=== PATIENT | male | born 1985 | race Caucasian/White ===

== ENCOUNTER 2022-12-04 10:55 | Inpatient (IN) | payer OTHER, SELFPAY ==
--- NOTE | ~2022-12-04 | MR_ITS ---
EXAMINATION: MR CERVICAL SPINE WITHOUT AND WITH CONTRAST MR THORACIC SPINE WITHOUT AND WITH CONTRAST CLINICAL INFORMATION: Demyelinating disease. Saddle anesthesia. Weakness. COMPARISON: None available. TECHNIQUE: MRI of the cervical and thoracic spine was obtained using routine sequences without and following the administration of 8 mL of Gadavist intravenous contrast. FINDINGS: Cervical Spine: Mild degenerative retrolisthesis of C5 on C6. Otherwise, normal anatomic alignment. Moderate degenerative disc disease from C2-C7. Associated mild mixed Modic type discogenic endplate changes including minimal Modic type I discogenic edema at C4-C5 and C5-C6. No additional suspicious marrow edema. The vertebral body heights are well-maintained. No demonstrated spinal cord signal abnormalities. No abnormal contrast enhancement. Limited evaluation of the soft tissues of the neck without demonstrated abnormalities. The flow voids of the major cervical vessels are maintained. Normal appearance of the cervicomedullary junction and visualized posterior fossa. SPINAL LEVELS: C2-C3: Minimal disc-osteophyte complex. There is mild left and no right uncovertebral joint arthropathy. There is mild bilateral facet joint arthropathy. There is no neural foraminal stenosis. There is no spinal canal stenosis. C3-C4: Minimal disc-osteophyte complex. There is mild left and no right uncovertebral joint arthropathy. There is mild bilateral facet joint arthropathy. There is mild left and no right neural foraminal stenosis. There is no spinal canal stenosis. C4-C5: Mild disc-osteophyte complex. There is mild left and no right uncovertebral joint arthropathy. There is moderate bilateral facet joint arthropathy. There is mild left and no right neural foraminal stenosis. There is no spinal canal stenosis. C5-C6: Mild disc-osteophyte complex. There is mild bilateral uncovertebral joint arthropathy. There is mild bilateral facet joint arthropathy. There is mild left and no right neural foraminal stenosis. There is no spinal canal stenosis. C6-C7: Moderate disc-osteophyte complex. There is moderate bilateral uncovertebral joint arthropathy. There is moderate bilateral facet joint arthropathy. There is moderate bilateral neural foraminal stenosis. There is no spinal canal stenosis. C7-T1: Normal annular contour. There is no uncovertebral joint arthropathy. There is mild bilateral facet joint arthropathy. There is no neural foraminal stenosis. There is no spinal canal stenosis. Thoracic Spine: Normal anatomic alignment. Multilevel mild degenerative disc disease with associated mild mixed Modic type discogenic endplate changes. No additional suspicious marrow edema. The vertebral body heights are largely maintained. There appears to be faintly increased T2 signal within the dorsal aspect of the spinal cord from the level of T11 through the conus medullaris. No demonstrated additional spinal cord signal abnormalities. No abnormal contrast enhancement. No significant abnormalities of the paraspinal musculature. Moderate bibasilar dependent atelectasis. Otherwise, limited evaluation of the intrathoracic structures without significant abnormalities. The descending thoracic aorta is of normal contour and caliber. AXIAL SPINAL LEVELS: Minimal multilevel posterior disc herniations, most notably at T3-T4 and T11-T12. There is mild multilevel facet joint arthropathy. There is no neural foraminal stenosis. There is no spinal canal stenosis. MR/MR thoracic spine wo/w con IMPRESSION: 1. There appears to be faintly increased T2 signal within the dorsal aspect of the spinal cord from the level of T11 through the conus medullaris. This is a nonspecific finding but may be seen in the setting of a infectious, inflammatory, or demyelinating process. No demonstrated additional spinal cord signal abnormalities. No abnormal enhancement. 2. Moderate multilevel degenerative spondyloarthropathy of the cervical spine as described in detail above. Most notably, there are moderate neural foraminal stenoses at C6-C7. No overt spinal canal stenosis. 3. Mild multilevel degenerative spondyloarthropathy of the thoracic spine as described in detail above. No overt thoracic spinal canal stenosis or nerve root compression.
--- NOTE | ~2022-12-04 | MR_ITS ---
EXAMINATION: MR LUMBAR SPINE WITHOUT AND WITH CONTRAST CLINICAL INFORMATION: Low back pain and incontinence. Paresthesias. Lower extremity weakness. COMPARISON: No relevant prior imaging. TECHNIQUE: Multiplanar MR imaging of the lumbar spine was performed without and with contrast. A total of 8 mL Gadavist was utilized for this examination. FINDINGS: Alignment is normal. Vertebral body heights are preserved. No acute bone marrow signal changes. There is disc desiccation at L4-L5 and L5-S1 without substantial loss of intervertebral disc height. The tip of the conus medullaris is located at L1-L2. There is intramedullary T2 signal hyperintensity primarily involving the dorsal columns of the distal cord that is partially included within the [id number] of this examination. For instance this finding is well depicted on sagittal image 8 of 14 series 2 and on axial image 1 of 33 series 6. The superior extent of this abnormal finding cannot be determined. Otherwise no mass effect on the conus medullaris. At L1-L2 the annular contour is normal. No canal or neuroforaminal compromise. At L2-L3 the annular contour is normal. No canal or neuroforaminal compromise. At L3-L4 the annular contour is normal. No canal or neuroforaminal compromise. At L4-L5 there is a diffusely bulging disc. Bilateral facet degenerative change. No canal stenosis. No substantial mass effect on the traversing or foraminal nerve roots. At L5-S1 there is a diffusely bulging disc. Bilateral facet degenerative change. No canal stenosis. No substantial mass effect on the traversing or foraminal nerve roots. Postcontrast images also demonstrate abnormal enhancement along the posterior surface of the distal cord. Limited visualization of the retroperitoneal anatomy reveals no abnormal finding. Psoas and paraspinal groups are symmetric. MR/MR lumbar spine wo/w con IMPRESSION: There is abnormal intramedullary signal intensity primarily involving the dorsal columns and subtle superficial enhancement along the dorsal surface of the distal cord. The etiology of these findings is uncertain. Infectious, inflammatory, or demyelinating conditions should be considered. Ischemia can also be considered but is felt to be less likely with this distribution of disease. A dedicated MRI of the brain, cervical spine, and thoracic spine without and with contrast can be obtained for further evaluation of the neural axis. A lumbar puncture can also be undertaken for further workup. There is disc degeneration and degenerative arthrosis of the articular facet joints at L4-L5 and L5-S1. No canal stenosis. No mass effect on the traversing or foraminal nerve roots. This critical result was discussed with Dr Wei at 1:41 PM on 12/04/2022 and it was ascertained that the content and urgency of the report was understood at the time of direct communication.
--- NOTE | ~2022-12-04 | FL_ITS ---
EXAMINATION: XR LUMBAR PUNCTURE CLINICAL INFORMATION: Abnormal MRI question of a demyelinating disease. Weakness and saddle anesthesia of the pelvis. COMPARISON: MRI dated 12/04/2022 TECHNIQUE: After the skin was prepped and draped in usual fashion 1% lidocaine was utilized. A 22-gauge Chiba needle was then placed from a posterior approach into the thecal sac at the level of the L3-L4 disc space. FINDINGS: Clear CSF was drained. Opening pressures were measured at 19 cm. Approximately 8 mL of clear CSF was then collected in 4 separate vials. After collecting the specimens the needle was removed. The patient tolerated the procedure well. FLUOROSCOPY TIME: 2 minutes FL/FL guided lumbar puncture LP IMPRESSION: Fluoroscopic guided lumbar puncture.
--- NOTE | ~2022-12-04 | MR_ITS ---
EXAMINATION: MR BRAIN WITHOUT AND WITH CONTRAST CLINICAL INFORMATION: Demyelinating disease. Saddle anesthesia. Weakness. COMPARISON: None available. TECHNIQUE: MRI of the brain was obtained using routine sequences without and following the administration of 8 mL of Gadavist intravenous contrast. FINDINGS: No focal restricted diffusion is demonstrated to suggest acute or subacute cerebral ischemia. No evidence of acute or chronic hemorrhagic products on heme-sensitive imaging. Normal parenchymal signal characteristics. The ventricles are normal in morphology and size. No abnormal mass effect. No midline shift. Normal appearance of the pituitary gland. Normal positioning of the cerebellar tonsils. Normal arterial and venous vascular flow voids are present. No abnormal contrast enhancement. Normal, homogeneous marrow signal. Moderate mucosal thickening of the paranasal sinuses. No signal abnormalities within the mastoids. MR/MR head/brain wo/w con IMPRESSION: 1. No acute intracranial abnormalities. No abnormal intracranial enhancement. 2. No MRI abnormalities to explain the patient's symptoms.
[2022-12-04 11:10] VITALS: BP 139/70; PULSE 110; RESP 18; O2SAT 97; BMI 25.1
--- NOTE | 2022-12-04 11:14 | ED_ITS ---
HPI - Neuro Symptoms/Deficit General Chief Complaint: Neuro Symptoms/Deficit Stated Complaint: mri Time Seen by Provider: 12/04/22 11:02 Source: patient Mode of arrival: ambulatory Limitations: no limitations History of Present Illness HPI Narrative: 37-year-old male otherwise healthy came in from Dr. Ramos's office for further evaluation of lower extremities weakness and urinary incontinence with suspicion for cauda equina syndrome. 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 Been having a progressive weakness to lower extremities bilaterally, patient also noted that his been having urinary incontinence, with loss sensation on the buttock area bilaterally, patient also is unable to ambulate on his heels due to weakness of the dorsiflexion. Never had similar symptoms in the past, never had surgical history. No history of IV drug abuse, no fever, no chills. Related Data Home Medications Medication Instructions Recorded Confirmed citalopram 10 mg tablet 10 mg PO DAILY 12/04/22 12/04/22 dextroamphetamine-amphetamine 10 1 tab PO 3XD PRN sleep disorder 12/04/22 12/04/22 mg tablet dextroamphetamine-amphetamine 20 1 tab PO QAM 12/04/22 12/04/22 mg tablet doxycycline hyclate 100 mg capsule 100 mg PO BID 12/04/22 12/04/22 Allergies Allergy/AdvReac Type Severity Reaction Status Date / Time No Known Allergies Allergy Verified 12/04/22 11:09 Review of Systems Review of Systems: All other systems are reviewed and are negative Constitutional: Reports as per HPI and Reports no additional constitutional complaints Eyes: Reports as per HPI and Reports no additional eye complaints Reports system reviewed and no additional complaints, except as documented Cardiovascular: Reports as per HPI and Reports no additional cardiovascular complaints Respiratory: Reports as per HPI and Reports no additional respiratory complaints Gastrointestinal: Reports as per HPI and Reports no additional gastrointestinal complaints Genitourinary: Reports no additional female genitourinary complaints Musculoskeletal: Reports no additional musculoskeletal complaints Skin/Breast: Reports system reviewed and no additional complaints, except as docu Psychiatric: Reports no additional psychiatric complaints Endocrine: Reports no additional endocrine complaints Hematologic/Lymphatic: Reports no additional hematologic/lymphatic complaints Allergic/Immunologic: Reports no additional allergic/immunologic complaints Reports system reviewed and no additional complaints, except as documented and Reports Abnormal speech present [facility] Social History Social History Advance Directives: No Physical Exam Vital Signs: Vital Signs: Last Vital Signs Pulse 110 H 12/04/22 11:10 Resp 18 12/04/22 11:10 BP 139/70 12/04/22 11:10 Pulse Ox 97 12/04/22 11:10 O2 Del Method Room Air 12/04/22 11:10 BMI result Body Mass Index 25.1 Vital signs have been reviewed as appeared to be correct. Blood pressure normal. Heart rate normal. Respiration rate normal. Temperature normal. Oxygen saturation normal. Appearance: Alert. Oriented X3. No acute distress. Head: Normal external exam. Normocephalic. Atraumatic. No Miguel signs noted. No raccoon eyes noted Eyes: PERRLA. EOMI. Conjunctiva and sclera normal. Eyelids normal. ENT: TM's Normal. Pharynx normal. Uvula midline. Moist mucous membranes. No trismus noted. No drooling noted. No muffled voice noted. Neck: Normal inspection. Neck supple. FROM. No adenopathy. Thyroid Normal. No meningeal signs. No neck mass noted. CVS: Normal heart rate and rhythm. Heart sound normal. No murmurs noted. Pulses normal throughout. Respiratory: No respiratory distress. Painless inspiration. Breath sounds normal. No wheezes/rales/rhonchi noted. Chest nontender. No accessory muscle usage noted or decreased air movement noted. Abdomen: Soft and nontender. Bowel sounds normal in all 4 quadrants. No distention noted. No organomegaly noted. No visible injury noted. Back: No CVA tenderness. Full range of motion noted. Skin: Skin warm and dry. Normal skin color. Normal skin turgor. No rashes/lesions/lacerations noted. Extremities: No lower extremity edema. Extremities exhibit normal range of motion. Extremities nontender. Neuro: Decreased sensation to the bilateral buttock area to light touch and pin per, no perianal sensation, weakness of the dorsiflexion. Course Course Course Narrative: Abnormal spinal cord signal involving the dorsal Columns, the case discussed with Dr. Loyd will start the patient on high dose Solu-Medrol, non emergent LP, admission for further neurological investigations. Medications Administered Discontinued Medications Generic Name Dose Route Start Last Admin Trade Name Freq PRN Reason Stop Dose Admin Gadobutrol 10 ml 12/04/22 12:09 12/04/22 12:09 Gadobutrol 10 Ml Vial IVPUSH 12/04/22 12:10 8 ml ONCE ONE Administration Medical Decision Making Differential Diagnosis Differential Diagnoses: The differential diagnosis associated with the presentation includes (Cauda equina, space-occupying lesion, electrolyte abnormality, severe anemia.) Admission/Observation Consideration of admission/observation: Escalation of care including admission/observation considered Consult Healthcare Provider Management of the patient was discussed with: Hospitalist (Dr. Coffman) and Credit Associate (Dr. Loyd) Lab Data MDM Lab Attestation statement: I reviewed the patient's lab results. 12/04/22 12:55 12/04/22 12:55 Labs: Lab Results 12/04/22 12/04/22 Range/Units 12:55 12:55 WBC 7.4 (4.8-10.8) X10*3/uL RBC 4.18 L (4.60-5.80) X10*6/uL Hgb 14.0 (14.0-18.0) g/dl Hct 40.0 L (42.0-52.0) % MCV 95.7 (80.0-98.0) fL MCH 33.5 H (27.0-33.0) pg MCHC 35.0 (31.0-36.0) g/dl RDW 11.5 (11.0-16.0) % Plt Count 224 (160-400) X10*3/uL MPV 8.9 L (9.4-12.4) fL Immature Gran % (Auto) 1.2 H (0.0-0.4) % Neut % (Auto) 66.2 (45-73) % Lymph % (Auto) 23.7 (20-40) % Mcminn % (Auto) 6.6 (2-11) % Eos % (Auto) 1.6 (0-4) % Baso % (Auto) 0.7 (0-2) % Lymph # (Auto) 1.8 (1.2-4.9) X10*3/uL Mcminn # (Auto) 0.5 (0.1-1.2) X10*3/uL Eos # (Auto) 0.1 (0.0-0.4) X10*3/uL Baso # (Auto) 0.1 (0.0-0.2) X10*3/uL Abs Immat Gran (auto) 0.09 H (0.00-0.03) X10*3/uL Absolute Neuts (auto) 4.9 (2.0-8.3) x10*3/uL Absolute Nucleated RBC 0.000 (0.0-0.012) X10*3/uL Nucleated RBC % (auto) 0.0 (0.0-0.2) /100WBC Sodium 141 (135-145) mmol/L Potassium 4.3 (3.3-5.1) mmol/L Chloride 105 (96-108) mmol/L Carbon Dioxide 25 (22-29) mmol/L Anion Gap 15 (12-20) BUN 12 (9-16) mg/dL Creatinine 0.80 (0.5-1.4) mg/dL Estim Creat Clear Calc 131.8 Estimated GFR > 60 Random Glucose 89 (60-115) mg/dL Calcium 9.5 (8.4-10.2) mg/dL Independent Interpretation Interpretation: Lumbar spine MRI:There is abnormal intramedullary signal intensity primarily involving the dorsal columns and subtle superficial enhancement along the dorsal surface of the distal cord. The etiology of these findings is uncertain. Infectious, inflammatory, or demyelinating conditions should be considered. Ischemia can also be considered but is felt to be less likely with this distribution of disease Radiology Impression Discussion of test interpretation with radiology: I have reviewed the r adiologist's reading. Discharge Plan Discharge Clinical Impression: Lower extremity weakness, Demyelinating disease of the spinal cord Patient Disposition: Admitted As Inpatient
--- NOTE | 2022-12-04 11:17 | PC.NURSE ---
mri screening form done and pt sent to MRI
--- OUTSIDE RECORDS SUMMARY | 2022-12-04 11:18 | XMS_ITS | Continuity of Care Document ---
Author Name Unknown Organization [facility] kiran Address [address] [place] [address] [address] [place] [address]- Care Team Providers Care Christmas Tree Grower Name Role Phone Shanae Lam MD Primary Care Physician Encounter [facility] Date(s): 08/13/21 - 10/05/21 [facility] [address] [place] [address]- Attending Physician: Kaz Singletary MD Referring Physician: Shanae Lam MD Allergies, Adverse Reactions, Alerts No Known Allergies Immunizations Given and Recorded Vaccine Date Status Refusal Reason influenza virus vaccine, inactivated 1 02/21/16 Gi driss Influenza Inactive (IM) (oldterm) 2 03/29/14 Given Influenza Inactive (IM) (oldterm) 3 03/05/09 Given Human Papillomavirus Vaccine 09/22/12 Given Human Papillomavirus Vaccine 4 03/03/12 Given Human Papillomavirus Vaccine 5 01/20/12 Given tetanus/diphtheria/pertussis, acel(Tdap) 6 09/13/09 Given 1Admin Note: Work , [employer] employee 2Admin Note: specific date unknown 3Admin Note: specific date unknown seasonal given 4Admin Note: vis given 5Admin Note: vis given 6Admin Note: specific date unknown Medications Adderall 10 mg oral tablet 1 tablet = 10 mg, By Mouth, 2 times a day, controlled substance agreement. Next citrus picker in office 04/12/16 DX: F90.9, # 56 tablet, 0 Refills, Maintenance, 04/12/16 16:39:03 Start Date: 04/12/16 Stop Date: 05/10/16 Status: Ordered citalopram 40 mg oral tablet 40 mg, 1, tablet, By Mouth, Daily, # 90 tablet, Refills 1, Tot. Refills 1, Maintenance, 10/01/16 11:10:14, Route to Pharmacy Electronically, [id number], [facility]/pharmacy #[id number] Start Date: 10/01/16 Stop Date: 03/30/17 Status: Ordered Multivitamin Daily, 0 Refills, Maintenance, 02/21/16 15:24:00 Start Date: 02/21/16 Status: Ordered Paxlovid 150 mg-100 mg oral tablet See Instructions, 300 mg nirmatrelvir (two 150mg tablets) with 100mg ritonavir (one tablet). All 3 tablets taken together twice daily for 5 days with or without food. Dispense 30 tablets Patient's GFR checked in the emergency department on ... Start Date: 08/29/21 Status: Ordered Problem List Condition Effective Dates Status Health Status Inform ant Abdominal bloating(Confirmed) Active Abdominal pain, generalized(Confirmed) Active Anxiety(Confirmed) 12/19/12 Active Change in bowel habit(Confirmed) Active COVID-19(Confirmed) 1 08/29/21 Active Depression(Confirmed) Active Diagnostic colonoscopy(Confirmed) Active Epigastric pain(Confirmed) Active Heartburn symptom(Confirmed) Active Hiatal hernia(Confirmed) Active Hypersomnia, idiopathic. MLS T 05/2013(Confirmed) 12/19/12 Active Irritable bowel syndrome wit h diarrhea(Confirmed) Active Psoriasis with arthropathy(Confirmed) Active Tobacco dependence syndrome(Confirmed) Active Vitamin D deficiency(Confirmed) Active 1Problem added by Discern Expert Social History Social History Type Response Smoking Status Current every day xin guzman; Interested in cessation: Yes; Tobacco use times per day: 1 ppd; entered on: 09/28/14 Sex
--- OUTSIDE RECORDS SUMMARY | 2022-12-04 11:19 | XMS_ITS | Continuity of Care Document ---
Author Name Unknown Organization [facility] Address [address] [place] [address]- Care Team Providers Care Air Brake Man Name Role Phone Not on Staff, PCP Primary Care Physician Unavail able Encounter [facility] NBR [id number] Date(s): 08/24/20 - 08/24/[address] [address]- Discharge Disposition: A-D/C Home Attending Physician: Randy Patel MD Admitting Physician: Randy Patel MD Referring Physician: Not on Staff, Referring MD Allergies, Adverse Reactions, Alerts Substance Reaction Severity Status NKA Active Immunizations Given and Recorded Vaccine Date Status Refusal Reason influenza virus vaccine, inactivated 1 02/21/16 Gi driss Influenza Inactive (IM) (oldterm) 2 03/29/14 Given Influenza Inactive (IM) (oldterm) 3 03/05/09 Given Human Papillomavirus Vaccine 09/22/12 Given Human Papillomavirus Vaccine 4 03/03/12 Given Human Papillomavirus Vaccine 5 01/20/12 Given tetanus/diphtheria/pertussis, acel(Tdap) 6 09/13/09 Given 1Admin Note: Work , [employer] employee 2Admin Note: specific date unknown 3Admin Note: specific date unknown seasonal given 4Admin Note: vis given 5Admin Note: vis given 6Admin Note: specific date unknown Medications Adderall 10 mg oral tablet 1 tablet = 10 mg, By Mouth, 2 times a day, controlled substance agreement. Next pick up and delivery driver in office 04/12/16 DX: F90.9, # 56 tablet, 0 Refills, Maintenance, 04/12/16 16:39:03 Start Date: 04/12/16 Stop Date: 05/10/16 Status: Ordered Augmentin 875 mg-125 mg oral tablet 1 tablet, By Mouth, Every 12 hours, for 10 days, # 20 tablet, 0 Refills, Acute 09/03/20 16:11:00 EDT, 08/24/20 16:11:00 EDT, Tablet, [facility]/pharmacy #[id number], Partial fill upon patient request if the prescription is for a schedule II opioid drug., 180, cm,... Start Date: 08/24/20 Stop Date: 09/03/20 Status: Ordered citalopram 40 mg oral tablet 40 mg, 1, tablet, By Mouth, Daily, # 90 tablet, Refills 1, Tot. Refills 1, Maintenance, 10/01/16 11:10:14, Route to Pharmacy Electronically, [id number], [facility]/pharmacy #[id number] Start Date: 10/01/16 Stop Date: 03/30/17 Status: Ordered Dilaudid Inj 1 mg, Injection, IV Push Slowly, Once, STAT, 08/24/20 11:22:00 EDT, Stop date 08/24/20 11:22:00 EDT Start Date: 08/24/20 Stop Date: 08/24/20 Status: Completed Multivitamin Daily, 0 Refills, Maintenance, 02/21/16 15:24:00 Start Date: 02/21/16 Status: Ordered oxyCODONE 5 mg oral capsule 1 capsule = 5 mg, By Mouth, Every 6 hours, PRN as needed for pain, # 10 capsule, 0 Refills, Acute 08/29/20 16:16:00 EDT, 08/24/20 16:13:00 EDT, Capsule, [facility]/pharmacy #[id number], Partial fill upon patient request if the prescription is for a schedule II opi... Start Date: 08/24/20 Stop Date: 08/29/20 Status: Ordered Problem List Condition Effective Dates Status Health Status Inform ant Abdominal bloating(Confirmed) Active Abdominal pain, generalized(Confirmed) Active Anxiety(Confirmed) 12/19/12 Active Change in bowel habit(Confirmed) Active Depression(Confirmed) Active Diagnostic colonoscopy(Confirmed) Active Epigastric pain(Confirmed) Active Heartburn symptom(Confirmed) Active Hiatal hernia(Confirmed) Active Hypersomnia, idiopathic. MLS T 05/2013(Confirmed) 12/19/12 Active Irritable bowel syndrome wit h diarrhea(Confirmed) Active Psoriasis with arthropathy(Confirmed) Active Tobacco dependence syndrome(Confirmed) Active Vitamin D deficiency(Confirmed) Active Results Orders for Microbiology Reports Name Date Wound Deep Culture w/ Gram Smear (Cultur e Wound Deep w/ Gram Smear) 08/24/20 Microbiology Reports TEST:Deep Wound Culture STATUS:Unauthenticated BODY SITE: SOURCE:ABSCES COLLECTED DATE/TIME:08/24/20 4:00 PM Deep Wound Culture SPECIMEN DESCRIPTION : ABSCESS BUTTOCK LT SPECIAL REQUESTS : NONE GRAM STAIN : 4+ POLYMORPHONUCLEAR LEUKOCYTES 3+ RBC'S 3+ GRAM POSITIVE COCCI 1+ GRAM NEGATIVE RODS REPORT STATUS : PRELIMINARY REPORT Vital Signs Most recent to oldest [Reference Range]: 1 2 3 Height 180 cm (08/24/20 4:11 PM) 180 cm (08/24/20 1:08 PM) 180 cm (08/24/20 10:14 AM) Weight 79.5 kg (08/24/20 4:11 PM) 79.5 kg (08/24/20 10:14 AM) Oxygen Saturation [94-100 %] 86 % *L* (08/24/20 4:11 PM) 97 % (08/24/20 1:08 PM) 96 % (08/24/20 10:14 AM) Pulse Rate [55-90 bpm] 86 bpm (08/24/20 4:11 PM) 88 bpm (08/24/20 1:08 PM) 97 bpm *H* (08/24/20 10:14 AM) Body Mass Index [18.5-24.99] 24.54 (08/24/20 4:11 PM) Blood Pressure [90-138/55-84 mm Hg] 104/62mm Hg (08/24/20 4:11 PM) 115/78mm Hg (08/24/20 1:08 PM) 127/76mm Hg (08/24/20 10:14 AM) Respiratory Rate [16-30 br/min] 18 br/min (08/24/20 4:11 PM) 16 br/min (08/24/20 11:33 AM) 18 br/min (08/24/20 10:14 AM) Temperature [96.8-100.4 DegF] 98.9 DegF (08/24/20 10:14 AM) Mode of Delivery (Oxygen) Room air (08/24/20 4:11 PM) Room air (08/24/20 1:08 PM) Room air (08/24/20 10:14 AM) Blood pressure sites Arm, left (08/24/20 4:11 PM) Arm, left (08/24/20 1:08 PM) Temperature Route Oral (08/24/20 10:14 AM) Dry Weight 79.5 kg (08/24/20 4:11 PM) 79.5 kg (08/24/20 10:14 AM) Social History Social History Type Response Smoking Status Current every day xin guzman; Interested in cessation: Yes; Tobacco use times per day: 1 ppd; entered on: 09/28/14 Sex
--- OUTSIDE RECORDS SUMMARY | 2022-12-04 11:19 | XMS_ITS | Continuity of Care Document ---
Author Name Unknown Organization [facility] Nori kiran Address [address] [place] [address] [address] [place] [address]- Care Team Providers Care Technical Laboratory Asst Name Role Phone Genaro PAULA, Shanae Pinto Primary Care Physician [phone] Encounter [facility] Date(s): 03/06/22 - 04/12/22 [facility] [address] [place] [address]- Attending Physician: Hayder PAULA, Kaz Woods Allergies, Adverse Reactions, Alerts No Known Allergies [...] 6 09/13/09 Given 1Admin Note: Work , [facility] employee 2Admin Note: specific date unknown 3Admin Note: specific date unknown seasonal given 4Admin Note: vis given 5Admin Note: vis given 6Admin Note: specific date unknown Medications Adderall 10 mg oral tablet 1 tablet = 10 mg, By Mouth, 2 times a day, controlled substance agreement. Next orange picker machine operator in office 04/12/16 DX: F90.9, # 56 tablet, 0 Refills, Maintenance, 04/12/16 16:39:03 Start Date: 04/12/16 Stop Date: 05/10/16 Status: Ordered citalopram 40 mg oral tablet 40 mg, 1, tablet, By Mouth, Daily, # 90 tablet, Refills 1, Tot. Refills 1, Maintenance, 05/30/17 11:10:14, Route to Pharmacy Electronically, [id number], [facility]/pharmacy #[id number] Start Date: 10/01/16 Stop Date: 03/30/17 Status: Ordered Multivitamin Daily, 0 Refills, Maintenance, 02/21/16 15:24:00 Start Date: 02/21/16 Status: Ordered Problem List Condition Confirmation Course Effective Dates Status Health St atus Informant Abdominal bloating Confirmed Active Abdominal pain, generalized Confirmed Active Anxiety Confirmed 12/19/12 Active Change in bowel habit Confirmed Active COVID-19 1 Confirmed 08/29/21 Active Depression Confirmed Active Diagnostic colonoscopy Confirmed Active Epigastric pain Confirmed Active Heartburn symptom Confirmed Active Hiatal hernia Confirmed Active Hypersomnia, idiopathic. MLST 05/2013 Confirmed 12/19/12 Active Irritable bowel syndrome with diarrhea Confirmed Active Psoriasis with arthropathy Confirmed Active Tobacco dependence syndrome Confirmed Active Vitamin D deficiency Confirmed Active 1Problem added by Discern Expert Social History Social History Type Response Smoking Status Current every day sm oker; Interested in cessation: Yes; Tobacco use times per day: 1 ppd; entered on: 09/28/14 Sex Patient Care team information Care Team Personnel Name: Elvis Ferguson RN Position: S RN Member Role: Primary Care Nurse Name: Elvis Rosario RN Position: S RN Member Role: Primary Care Nurse Name: Shanae Lam MD Position: [facility] Physician (General Medicine) Member Role: PCP Address: Address: [address] [place] [address]- Care Team Related Persons Name: RODNEY MONTANEZ Address: home [address] [place] [address] Name: GREGORIO MONTANEZ Address: [address] [place] [address] Name: JAN MONTANEZ Address: home [address] [place] [address]
--- OUTSIDE RECORDS SUMMARY | 2022-12-04 11:19 | XMS_ITS | Continuity of Care Document ---
Author Name Unknown Organization [facility] Nori kiran Address [address] [place] [address] [address] [place] [address]- Care Team Providers Care Golf Course Patroller Name Role Phone Genaro PAULA, Shanae Pinto Primary Care Physician Encounter [facility] Date(s): 03/21/22 - 03/28/22 [facility] [address] [place] [address]- Attending Physician: Hayder PAULA, Kaz Woods Allergies, [...] 6 09/13/09 Given 1Admin Note: Work , [facility] employee 2Admin Note: specific date unknown 3Admin Note: specific date unknown seasonal given 4Admin Note: vis given 5Admin Note: vis given 6Admin Note: specific date unknown Medications Adderall 10 mg oral tablet 1 tablet = 10 mg, By Mouth, 2 times a day, controlled substance agreement. Next picket labor union in office 04/12/16 DX: F90.9, # 56 tablet, 0 Refills, Maintenance, 04/12/16 16:39:03 Start Date: 04/12/16 Stop Date: 05/10/16 Status: Ordered citalopram 40 mg oral tablet 40 mg, 1, tablet, By Mouth, Daily, # 90 tablet, Refills 1, Tot. Refills 1, Maintenance, 05/30/17 11:10:14, Route to Pharmacy Electronically, [id number], [facility]/pharmacy #[id number] Start Date: 10/01/16 Stop Date: 03/30/17 [...] Confirmed Active 1Problem added by Discern Expert Vital Signs Most recent to oldest [Reference Range]: 1 Height 180 cm (03/21/22 11:56 AM) Pulse Rate [55-90 bpm] 115 bpm *H* (03/21/22 11:56 AM) Blood Pressure [90-138/55-84 mm Hg] 142/ 99mm Hg *H* (03/21/22 11:56 AM) Blood pressure sites Arm, left (03/21/22 11:56 AM) Social History Social History Type Response [...] Care Nurse Name: Shanae Lam MD Position: [facility] Physician (General Medicine) Member Role: PCP Address: Address: [address] [address]- Care Team Related Persons Name: RODNEY MONTANEZ Address: home [address] [place] [id number] Name: GREGORIO MONTANEZ Address: [address] [place] [address] Name: JAN MONTANEZ Address: home [address] [place] [address]
--- OUTSIDE RECORDS SUMMARY | 2022-12-04 11:19 | XMS_ITS | Continuity of Care Document ---
Author Name Unknown Organization [facility] Address [address] [place] [address]- Care Team Providers Care Sewing Room Supervisor Name Role Phone Genaro PAULA, Shanae Pinto Primary Care Physician [phone] Encounter [facility] Date(s): 08/28/20 - [facility] [address] [place] [address]- Attending Physician: Andre Zapata MD Allergies, Adverse Reactions, Alerts Substance Reaction [...] 6 09/13/09 Given 1Admin Note: Work , [facility] employee 2Admin Note: specific date unknown 3Admin Note: specific date unknown seasonal given 4Admin Note: vis given 5Admin Note: vis given 6Admin Note: specific date unknown Medications Adderall 10 mg oral tablet 1 tablet = 10 mg, By Mouth, 2 times a day, controlled substance agreement. Next tile picker in office 04/12/16 DX: F90.9, # 56 tablet, 0 Refills, Maintenance, 04/12/16 16:39:03 Start Date: 04/12/16 Stop Date: 05/10/16 Status: Ordered citalopram 40 mg oral tablet 40 mg, 1, tablet, By Mouth, Daily, # 90 tablet, Refills 1, Tot. Refills 1, Maintenance, 10/01/16 11:10:14, Route to Pharmacy Electronically, [id number], [facility]/pharmacy #[id number] Start Date: 10/01/16 Stop Date: 03/30/17 Status: Ordered Multivitamin Daily, 0 Refills, Maintenance, 02/21/16 15:24:00 Start Date: 02/21/16 Status: Ordered Problem List Condition Effective Dates [...] dependence syndrome(Confirmed) Active Vitamin D deficiency(Confirmed) Active Social History Social History Type Response Smoking Status Current every day xin guzman; Interested in cessation: Yes; Tobacco use times per day: 1 ppd; entered on: 09/28/14 Sex
--- OUTSIDE RECORDS SUMMARY | 2022-12-04 11:19 | XMS_ITS | Continuity of Care Document ---
Author Name Unknown Organization [facility] kiran Address [address] [place] [address] Dri ve [address] [place] [address]- Care Team Providers Care Production Supply Equipment Tender Name Role Phone Shanae Lam MD Primary Care Physician [phone] Encounter [facility] Date(s): 03/21/22 - 04/20/22 [facility] [address] [place], [place] [address] Attending Physician: Frank Bryant Admitting Physician: Frank Bryant Referring Physician: AdmFrank peterson Allergies, Adverse Reactions, Alerts No Known Allergies [...] 09/13/09 Given 1Admin Note: Work , [facility] employee 2Admin Note: specific date unknown 3Admin [...] Maintenance, 10/01/16 11:10:14, Route to Pharmacy Electronically, [id number], [facility]/pharmacy #[id number] Start Date: 10/01/16 Stop Date: [...] Care Nurse Name: Shanae Lam MD Position: [facility] Physician (General Medicine) Member Role: PCP Address: Address: [address] [place], [place] [address] Care Team Related Persons Name: RODNEY MONTANEZ Address: home [address] [place] [address] Name: GREGORIO MONTANEZ Address: [address] [place] [address] Name: JAN MONTANEZ Address: home [address] [place] [address]
--- OUTSIDE RECORDS SUMMARY | 2022-12-04 11:19 | XMS_ITS | Continuity of Care Document ---
Author Name Unknown Organization [facility] Address [address] [place] [address] Dr [address] [place] [address]- Care Team Providers Care Correction Officer Reformatory Name Role Phone Shanae Lam MD Primary Care Physician Encounter [facility] Date(s): 11/08/21 - 12/08/21 [facility] [address] [place], [place] [address] Attending Physician: Frank Bryant Admitting Physician: Frank Bryant Referring Physician: AdmtrFrank Allergies, Adverse Reactions, Alerts No Known Allergies [...] 6 09/13/09 Given 1Admin Note: Work , [facility] employee 2Admin Note: specific date unknown 3Admin Note: specific date unknown seasonal given 4Admin Note: vis given 5Admin Note: vis given 6Admin Note: specific date unknown Medications Adderall 10 mg oral tablet 1 tablet = 10 mg, By Mouth, 2 times a day, controlled substance agreement. Next berry picker machine operator in office 04/12/16 DX: F90.9, # 56 tablet, 0 Refills, Maintenance, 04/12/16 16:39:03 Start Date: 04/12/16 Stop Date: 05/10/16 Status: Ordered citalopram 40 mg oral tablet 40 mg, 1, tablet, By Mouth, Daily, # 90 tablet, Refills 1, Tot. Refills 1, Maintenance, 10/01/16 11:10:14, Route to Pharmacy Electronically, [id number], [facility]/pharmacy #[id number] Start Date: 10/01/16 Stop Date: [...]
--- OUTSIDE RECORDS SUMMARY | 2022-12-04 11:19 | XMS_ITS | Continuity of Care Document ---
Author Name Unknown Organization [facility] kiran Address [address] [place] [address] ve [address] [place] [address]- Care Team Providers Care Hand Miter Operator Name Role Phone Genaro PAULA, Shanae Pinto Primary Care Physician Encounter [facility] Date(s): 01/16/22 - 02/15/22 [facility] [address] [place] [address]- Attending Physician: Frank Bryant Admitting Physician: Frank [...] 6 09/13/09 Given 1Admin Note: Work , [facility] employee 2Admin Note: specific date unknown 3Admin Note: specific date unknown seasonal given 4Admin Note: vis given 5Admin Note: vis given 6Admin Note: specific date unknown Medications Adderall 10 mg oral tablet 1 tablet = 10 mg, By Mouth, 2 times a day, controlled substance agreement. Next pecan picker in office 04/12/16 DX: F90.9, # 56 tablet, 0 Refills, Maintenance, 04/12/16 16:39:03 Start Date: 04/12/16 Stop Date: 05/10/16 Status: Ordered citalopram 40 mg oral tablet 40 mg, 1, tablet, By Mouth, Daily, # 90 tablet, Refills 1, Tot. Refills 1, Maintenance, 10/01/16 11:10:14, Route to Pharmacy Electronically, [id number], [facility]/pharmacy #[id number] Start Date: 10/01/16 Stop Date: [...] Response Smoking Status Current every day xin oker; Interested in cessation: Yes; Tobacco use times per day: 1 ppd; entered on: 09/28/14 Sex Patient Care team information Personnel Name: Genaro PAULA , Shanae Pinto Address: Address: [address] [place], [place] [address]
--- OUTSIDE RECORDS SUMMARY | 2022-12-04 11:19 | XMS_ITS | Continuity of Care Document ---
Author Name Unknown Organization [facility] Address [address] [place] [address] ve [address] [place] [address]- Care Team Providers Care Highway Painter Name Role Phone Genaro PAULA, Shanae Pinto Primary Care Physician [phone] Encounter [facility] Date(s): 01/16/22 - 01/23/22 [facility] [address] [place] [address]- Attending Physician: Kaz Singletary MD Allergies, Adverse Reactions, Alerts No Known [...] 6 09/13/09 Given 1Admin Note: Work , [facility] employee 2Admin Note: specific date unknown 3Admin Note: specific date unknown seasonal given 4Admin Note: vis given 5Admin Note: vis given 6Admin Note: specific date unknown Medications Adderall 10 mg oral tablet 1 tablet = 10 mg, By Mouth, 2 times a day, controlled substance agreement. 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 Refills 1, Maintenance, 10/01/16 11:10:14, Route to Pharmacy Electronically, [id number], [facility]/pharmacy #[id number] Start Date: 10/01/16 Stop Date: [...] deficiency(Confirmed) Active 1Problem added by Discern Expert Vital Signs Most recent to oldest [Reference Range]: 1 Height 180 cm (01/16/22 10:02 AM) Weight 80 kg (01/16/22 10:02 AM) Body Mass Index [18.5-24.99] 24.69 (01/16/22 10:02 AM) Social History Social History Type Response Smoking Status Current every day xin oker; Interested in cessation: Yes; Tobacco use times per day: 1 ppd; entered on: 09/28/14 Sex Care Team Personnel Name: Shanae Lam MD Address: [address] [place] [address] [address]
--- OUTSIDE RECORDS SUMMARY | 2022-12-04 11:19 | XMS_ITS | Continuity of Care Document ---
Author Name Unknown Organization [facility] Address [address] [place] [address]- Care Team Providers Care Outside Dealer Sales Representative Name Role Phone Genaro PAULA, Shanae Pinto Primary Care Physician Encounter [facility] Date(s): 08/28/20 - 09/27/20 [facility] [address] [place], [place] [address] Allergies, Adverse Reactions, Alerts Substance Reaction Severity [...] times a day, controlled substance agreement. 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 Refills 1, Maintenance, 10/01/16 11:10:14, Route to Pharmacy Electronically, [id number], [facility]/pharmacy #[id number] Start Date: 10/01/16 Stop Date: 03/30/17 [...]
--- OUTSIDE RECORDS SUMMARY | 2022-12-04 11:19 | XMS_ITS | Continuity of Care Document ---
Author Name Unknown Organization [facility] Nori kiran Address [address] [place] [address] [address] [place] [address]- Care Team Providers Care Applications Support Analyst Name Role Phone Genaro PAULA, Shanae Pinto Primary Care Physician [phone] Encounter [facility] Date(s): 07/18/22 - 07/25/22 [facility] [address] [place] [address] Drive [address] [place] [address]- Attending Physician: Gurmeet MARRERO, Desi Lei Allergies, Adverse Reactions, Alerts No Known Allergies [...] 09/13/09 Given 1Admin Note: Work , [facility] employee 2Admin Note: specific date unknown 3Admin Note: specific date unknown seasonal given 4Admin Note: vis given 5Admin Note: vis given 6Admin Note: specific date unknown Medications Adderall 10 mg oral tablet 1 tablet = 10 mg, By Mouth, 2 times a day, controlled substance agreement. Next picker/puller in office 04/12/16 DX: F90.9, # 56 tablet, 0 Refills, Maintenance, 04/12/16 16:39:03 Start Date: 04/12/16 Stop Date: 05/10/16 Status: Ordered chantix 1mg tablet See Instructions, 1/2 tab daily for days 1-3 then 1/2 tab twice a day for days 4-7 then day 8 and on 1 tablet By Mouth 2 times a day, # 52 tablet, 0 Refills, Acute 11/03/23 13:41:00 EDT, 05/09/22 13:38:00 EST, Tablet, [facility]/pharmacy #[id number], Partial fi... Start Date: 05/09/22 Stop Date: 11/03/23 Status: Ordered citalopram 40 mg oral tablet 40 mg, 1, tablet, By Mouth, Daily, # 90 tablet, Refills 1, Tot. Refills 1, Maintenance, 10/01/16 11:10:14, Route to Pharmacy Electronically, [id number], [facility]/pharmacy #[id number] Start Date: 10/01/16 Stop Date: 03/30/17 Status: Ordered Multivitamin Daily, 0 Refills, Maintenance, 02/21/16 15:24:00 Start Date: 02/21/16 Status: Ordered oxyCODONE 5 mg oral tablet 5 mg, 1, tablet, By Mouth, Every 6 hours, PRN, Refills 0, Tot. Refills 0, Maintenance, as needed for pain, 07/02/22 14:15:00 EST, Partial fill upon patient request if the prescription is for a schedule II opioid drug. Start Date: 07/02/22 Status: Ordered Problem List Condition Confirmation Course [...] oldest [Reference Range]: 1 Height 180 cm (07/18/22 9:15 AM) Social History Social History Type Response Smoking Status Current every day sm oker; Interested in cessation: Yes; Tobacco use times per day: 1 ppd; entered on: 09/28/14 Sex Patient Care team information Care Team Personnel Name: Marty JONES, Elvis Denise Position: [facility] RN Member Role: Primary Care Nurse Name: Marlene JONES, Elvis Denise Position: S RN Member Role: Primary Care Nurse Name: Shanae Lam MD Position: [facility] Physician (General Medicine) Member Role: PCP Address: Address: [address] [place] [address]- [place] Care Team Related Persons Name: RODNEY MONTANEZ Address: [address] [place] [address] Name: GREGORIO MONTANEZ Address: [address] [place] [address] Name: JAN MONTANEZ Address: [address] [place] [address]
--- OUTSIDE RECORDS SUMMARY | 2022-12-04 11:19 | XMS_ITS | Continuity of Care Document ---
Author Name Unknown Organization [facility] Address [address] [place] [address]- Care Team Providers Care Direct Mail Clerk Name Role Phone Genaro PAULA, Shanae Pinto Primary Care Physician Encounter [facility] Date(s): 08/30/20 - 09/29/20 [facility] [address] [place], [place] [address] Allergies, Adverse Reactions, Alerts Substance Reaction Severity [...] times a day, controlled substance agreement. Next car pick up driver in office 04/12/16 DX: F90.9, # 56 tablet, 0 Refills, Maintenance, 04/12/16 16:39:03 Start Date: 04/12/16 Stop Date: 05/10/16 Status: Ordered citalopram 40 mg oral tablet 40 mg, 1, tablet, By Mouth, Daily, # 90 tablet, Refills 1, Tot. Refills 1, Maintenance, 10/01/16 11:10:14, Route to Pharmacy Electronically, [id number], [facility]/pharmacy #[id number] Start Date: 10/01/16 Stop Date: [...]
--- OUTSIDE RECORDS SUMMARY | 2022-12-04 11:19 | XMS_ITS | Continuity of Care Document ---
Author Name Unknown Organization [facility] kiran Address [address] [place] [address] [address] [place] [address]- Care Team Providers Care Portfolio Consultant Name Role Phone Shanae Lam MD Primary Care Physician Encounter [facility] Date(s): 11/08/21 - 11/15/21 [facility] [address] [place] [address]- Attending Physician: Kaz Singletary MD Referring Physician: [...] 6 09/13/09 Given 1Admin Note: Work , [facility] employee 2Admin Note: specific date unknown 3Admin Note: specific date unknown seasonal given 4Admin Note: vis given 5Admin Note: vis given 6Admin Note: specific date unknown Medications Adderall 10 mg oral tablet 1 tablet = 10 mg, By Mouth, 2 times a day, controlled substance agreement. Next poultry picker in office 04/12/16 DX: F90.9, # 56 tablet, 0 Refills, Maintenance, 04/12/16 16:39:03 Start Date: 04/12/16 Stop Date: 05/10/16 Status: Ordered citalopram 40 mg oral tablet 40 mg, 1, tablet, By Mouth, Daily, # 90 tablet, Refills 1, Tot. Refills 1, Maintenance, 05/30/17 11:10:14, Route to Pharmacy Electronically, [id number], [facility]/pharmacy #[id number] Start Date: 10/01/16 Stop Date: 03/30/17 [...] oldest [Reference Range]: 1 Height 180 cm (11/08/21 1:09 PM) Social History Social History Type Response Smoking Status Current every day ixn guzman; Interested in cessation: Yes; Tobacco use times per day: 1 ppd; entered on: 09/28/14 Sex
--- OUTSIDE RECORDS SUMMARY | 2022-12-04 11:19 | XMS_ITS | Continuity of Care Document ---
Author Name Unknown Organization [facility] Address [address] [place] [address]- Care Team Providers Care Forming Process Worker Name Role Phone Shanae Lam MD Primary Care Physician [phone] Encounter [facility] Date(s): 08/29/21 - 08/29/[address] [address]- Encounter Diagnosis COVID-19(Final) - 08/29/21 Discharge Disposition: A-D/C Home Attending Physician: Baltazar Mchugh MD Admitting Physician: Baltazar Mchugh MD Referring Physician: Not on Staff, Referring MD Allergies, Adverse Reactions, Alerts No Known [...] times a day, controlled substance agreement. Next continuous pickling line pickler in office 04/12/16 DX: F90.9, # 56 tablet, 0 Refills, Maintenance, 04/12/16 16:39:03 Start Date: 04/12/16 Stop Date: 05/10/16 Status: Ordered citalopram 40 mg oral tablet 40 mg, 1, tablet, By Mouth, Daily, # 90 tablet, Refills 1, Tot. Refills 1, Maintenance, 10/01/16 11:10:14, Route to Pharmacy Electronically, [id number], [facility]/pharmacy #[id number] Start Date: 10/01/16 Stop Date: 03/30/17 [...] deficiency(Confirmed) Active 1Problem added by Discern Expert Results Radiology Reports * Exam Date Time Procedure Performing Provider Status 08/29/21 7:40 PM Chest Portable Eunice Byers; Au th (Verified) Notes: (Chest Portable) Reason For Exam: Cough RESULT: Chest Portable Chest Portable Hx of Present Illness: pt reports body aches, SOB, at home covid test + today, headache, pt reportstemp 104.5- no temp in traige, covid vaccinated, fatigue, denies n v d, dizziness light headeness; Reason: Cough; Clinical Question(s): Pneumonia; Special Instructions: This is a protocol film and radiologist should call any findings to the Charge Nurse or appropriate provider COMPARISON: 11/16/2015 FINDINGS: LINES AND TUBES: None. LUNGS AND PLEURA: Low lung volumes with mild basilar atelectasis. Lungs are otherwise clear with no consolidation. No pleural effusion. No pneumothorax. HEART, MEDIASTINUM AND ORALIA: Heart is normal in size. Normal upper mediastinal and hilar contour. BONES AND SOFT TISSUES: No acute abnormality. IMPRESSION: No acute abnormality. WSN: [id number] Ordering Physician: Baltazar Mchugh Dictated By: Perico Moreno MD Dictated Date/Time: 08/29/21 7:41 pm Reviewed By: Perico Moreno MD Signed By: Perico Moreno MD Signed Date/Time: 08/29/21 7:41 pm Transcribed By: HOWARD Transcribed Date/Time: 08/29/21 7:40 pm Vital Signs Most recent to oldest [Reference Range]: 1 2 Height 180 cm (08/29/21 6:22 PM) Weight 77.5 kg (08/29/21 6:22 PM) Oxygen Saturation [94-100 %] 98 % (08/29/21 9:14 PM) 97 % (08/29/21 6:22 PM) Pulse Rate [55-90 bpm] 98 bpm *H* (08/29/21 9:14 PM) 125 bpm *H* (08/29/21 6:22 PM) Blood Pressure [90-138/55-84 mm Hg] 116/ 62mm Hg (08/29/21 9:14 PM) 121/69mm Hg (08/29/21 6:22 PM) Respiratory Rate [16-30 br/min] 20 br/mi n (08/29/21 9:14 PM) 20 br/min (08/29/21 6:22 PM) Temperature [96.8-100.4 DegF] 98.8 DegF (08/29/21 6:22 PM) Mode of Delivery (Oxygen) Room air (08/29/21 9:14 PM) Room air (08/29/21 6:22 PM) Blood pressure sites Arm, right (08/29/21 9:14 PM) Arm, right (08/29/21 6:22 PM) Temperature Route Oral (08/29/21 6:22 PM) Dry Weight 77.5 kg (08/29/21 6:22 PM) Weight Obtained Via Patient/family state d (08/29/21 6:22 PM) Social History Social History Type Response Smoking Status Current every day xin guzman; Interested in cessation: Yes; Tobacco use times per day: 1 ppd; entered on: 09/28/14 Sex
--- OUTSIDE RECORDS SUMMARY | 2022-12-04 11:19 | XMS_ITS | Continuity of Care Document ---
Author Name Unknown Organization [facility] Nori kiran Address [address] [place] [address] [address] [place] [address]- Care Team Providers Care Wellness Nurse Rn Name Role Phone Genaro PAULA, Shanae Pinto Primary Care Physician Encounter [facility] Date(s): 03/12/22 - 04/11/22 [facility] [address] [place] [address] Drive [address] [place] [address]- Allergies, Adverse Reactions, Alerts No Known Allergies [...] 6 09/13/09 Given 1Admin Note: Work , [facility] employee 2Admin Note: specific date unknown 3Admin Note: specific date unknown seasonal given 4Admin Note: vis given 5Admin Note: vis given 6Admin Note: specific date unknown Medications Adderall 10 mg oral tablet 1 tablet = 10 mg, By Mouth, 2 times a day, controlled substance agreement. Next pickler helper in office 04/12/16 DX: F90.9, # 56 tablet, 0 Refills, Maintenance, 04/12/16 16:39:03 Start Date: 04/12/16 Stop Date: 05/10/16 Status: Ordered citalopram 40 mg oral tablet 40 mg, 1, tablet, By Mouth, Daily, # 90 tablet, Refills 1, Tot. Refills 1, Maintenance, 10/01/16 11:10:14, Route to Pharmacy Electronically, [id number], [facility]/pharmacy #[id number] Start Date: 10/01/16 Stop Date: [...] Care Nurse Name: Shanae Lam MD Position: [facility] Physician (General Medicine) Member Role: PCP Address: Address: [address] [place] [address] [address] [address]- Care Team Related Persons Name: RODNEY MONTANEZ Address: [address] [place] [address] Name: GREGORIO MONTANEZ Address: [address] [place] [address] Name: JAN MONTANEZ Address: [address] [place] [address]
--- OUTSIDE RECORDS SUMMARY | 2022-12-04 11:19 | XMS_ITS | Continuity of Care Document ---
Author Name Unknown Organization [facility] Address [address] [place] [address]- Care Team Providers Care Job Service Consultant Name Role Phone Shanae Lam MD Primary Care Physician Encounter [facility] Date(s): 09/12/20 - 10/12/20 [facility] [address] [place] [address]- Attending Physician: Frank Bryant Admitting Physician: Frank Bryant Referring Physician: AdmtrFrank Allergies, Adverse Reactions, Alerts Substance Reaction Severity [...] times a day, controlled substance agreement. Next clam picker in office 04/12/16 DX: F90.9, # 56 tablet, 0 Refills, Maintenance, 04/12/16 16:39:03 Start Date: 04/12/16 Stop Date: 05/10/16 Status: Ordered citalopram 40 mg oral tablet 40 mg, 1, tablet, By Mouth, Daily, # 90 tablet, Refills 1, Tot. Refills 1, Maintenance, 10/01/16 11:10:14, Route to Pharmacy Electronically, [id number], [facility]/pharmacy #[id number] Start Date: 10/01/16 Stop Date: [...]
--- OUTSIDE RECORDS SUMMARY | 2022-12-04 11:20 | XMS_ITS | Continuity of Care Document ---
Author Name Unknown Organization [facility] kiran Address [address] [place] [address] [address] [place] [address]- Care Team Providers Care Application Penetration Tester Name Role Phone Shanae Lam MD Primary Care Physician [facility] Date(s): 09/05/21 - 10/05/21 [facility] [address] [place] [address]- Attending Physician: Frank Bryant Admitting Physician: Frank [...] 6 09/13/09 Given 1Admin Note: Work , [facility] employee 2Admin Note: specific date unknown 3Admin Note: specific date unknown seasonal given 4Admin Note: vis given 5Admin Note: vis given 6Admin Note: specific date unknown Medications Adderall 10 mg oral tablet 1 tablet = 10 mg, By Mouth, 2 times a day, controlled substance agreement. Next slate picker in office 04/12/16 DX: F90.9, # 56 tablet, 0 Refills, Maintenance, 04/12/16 16:39:03 Start Date: 04/12/16 Stop Date: 05/10/16 Status: Ordered citalopram 40 mg oral tablet 40 mg, 1, tablet, By Mouth, Daily, # 90 tablet, Refills 1, Tot. Refills 1, Maintenance, 10/01/16 11:10:14, Route to Pharmacy Electronically, [id number], [facility]/pharmacy #[id number] Start Date: 10/01/16 Stop Date: [...]
[2022-12-04 12:59] LABS: MANUAL DIFF FLAG NO
[2022-12-04 13:00] LABS: Basophils Absolute Auto 0.1 X10*3/uL (0.0-0.2); Basophils Percent Auto 0.7 % (0-2); Eosinophils Absolute Auto 0.1 X10*3/uL (0.0-0.4); Eosinophils Percent Auto 1.6 % (0-4); Imm Gran Abs Auto 0.09 X10*3/uL (0.00-0.03); Imm Gran Pct Auto 1.2 % (0.0-0.4); Lymphocytes Absolute Auto 1.8 X10*3/uL (1.2-4.9); Lymphocytes Percent Auto 23.7 % (20-40); Mean Corpuscular Hemoglobin 33.5 pg (27.0-33.0); Mean Corpuscular Volume 95.7 fL (80.0-98.0); Mean Platelet Volume 8.9 fL (9.4-12.4); Monocytes Absolute Auto 0.5 X10*3/uL (0.1-1.2); Monocytes Percent Auto 6.6 % (2-11); Neutrophils Absolute Auto 4.9 x10*3/uL (2.0-8.3); Neutrophils Percent Auto 66.2 % (45-73); Platelet Count 224 X10*3/uL (160-400); Red Blood Count 4.18 X10*6/uL (4.60-5.80); Red Cell Distribution Width 11.5 % (11.0-16.0); White Blood Count 7.4 X10*3/uL (4.8-10.8)
[2022-12-04 13:12] LABS: Anion Gap 15 (12-20); Blood Urea Nitrogen 12 mg/dL (9-16); Calcium 9.5 mg/dL (8.4-10.2); Carbon Dioxide 25 mmol/L (22-29); Chloride 105 mmol/L (96-108); Creatinine Clr Calc Pharmacy 131.8; Estimated Glomerular Filt Rate > 60; Glucose Random 89 mg/dL (60-115); Potassium 4.3 mmol/L (3.3-5.1); Sodium 141 mmol/L (135-145)
--- NOTE | 2022-12-04 14:48 | PHA.MEDREC ---
Pharmacy Consult ? Medication Reconciliation Pharmacy has completed the medication reconciliation. Patient reported medications. Patient report Citalopram 10 mg but does not have a claim history for it. Patient Adderal 20 mg in the morning and 10 mg as needed through out the day for his sleep disorder. Lila Bob, PharmD
[2022-12-04] MEDS: methylPREDNISolone Sod Succ 1,000 MG in 0.9 % Sodium Chloride 50 ML 66 MG IV (15:37)
--- NOTE | 2022-12-04 16:00 | PC.NURSE ---
THIS RN ASSUMED CARE OF PT @ 1500. PT CALM AND COOPERATIVE. J LOOP ATTACHED TO IV PT MEDICATED ACCORDING TO JUL. PT CALM AND COOPERATIVE
--- NOTE | 2022-12-04 16:26 | PM.IMHP ---
History of Present Illness Date of Service: 12/04/22 Attending physician on admission: Andrez Layton Chief Complaint: weakness, paresthesias 37-year-old male who is a current everyday smoker with depression and idiopathic hypersomnia presented to the ED earlier today from Neurosurgery office for evaluation of low back pain, saddle anesthesia, bowel incontinence, urinary retention, and progressive lower extremity weakness. He states symptoms started about 3 days ago. Denies any injury. 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 He was referred to Neurosurgery office who recommended he come to the ED for emergent MRI due to concerns for cauda equina. On arrival, patient is slightly tachycardic to 110 and very anxious, vitals otherwise stable. There is no leukocytosis or anemia. Renal function and electrolyte levels normal. MRI of the lumbar spine shows abnormal intramedullary signal intensity primarily involving the dorsal columns in subtle superficial enhancement along the dorsal surface of the distal cord with differential to include infectious, inflammatory, or demyelinating conditions. Ischemia could also be considered but is less likely. Dedicated MRI cervical spine, thoracic spine, and brain recommended as well as lumbar puncture. Case discussed with Neurosurgery who does not feel this is surgical in nature. Neurology recommending admission for IV Solu-Medrol. In ED, given 1g IV solumedrol. No recent illness. Unsure if uncle with MS, otherwise denies FHx of demyelinating disease. Review of Systems Review of Systems: General: No fevers, malaise, unintentional weight loss HEENT: No blurred vision, diplopia. No sore throat, nasal congestion, rhinorrhea, sinus pain, ear pain Cardiovascular: No chest pain, palpitations, or leg edema Respiratory: No shortness of breath, wheezing, cough GI: No abdominal pain, nausea, vomiting, diarrhea, constipation, melena, hematochezia. +bowel incontinence : No dysuria, hematuria, increased urinary frequency. +urinary retention MSK: No myalgia. +back pain Neuro: No headaches. +weakness, +paresthesias, +saddle anesthesia Skin: No rashes or lesions [facility] Medical History Current every day smoker Depression Idiopathic hypersomnia Social History (Updated 12/04/22 @ 16:35 by ELIDA Cunha) Alcohol intake: current Alcohol intake frequency: holidays/special occasions only Patient Tobacco Use Status: Current everyday Tobacco user Tobacco use type: Cigarette Cigarette Packs Per Day: 11 Use of substances other than those prescribed or required for medical reasons: No Advance Directives: No Meds Allergies Allergy/AdvReac Type Severity Reaction Status Date / Time No Known Allergies Allergy Verified 12/04/22 11:09 Active Medications: Current Medications Acetaminophen (Acetaminophen 325 Mg Tablet) 650 mg PO Q6H PRN PRN Reason: Pain, Mild (Pain Scale 1-3) Docusate Sodium (Docusate Sodium 100 Mg Capsule) 100 mg PO DAILY PRN PRN Reason: Constipation Morphine Sulfate (Morphine Sulfate 2 Mg/Ml Cartridge) 2 mg IVPUSH Q4H PRN; Protocol PRN Reason: Pain, Severe (Pain Scale 7-10) Ondansetron HCl (Ondansetron Hcl 4 Mg/2 Ml Vial) 4 mg IVPUSH Q8H PRN PRN Reason: Nausea and Vomiting Oxycodone HCl (Oxycodone Hcl Immed Release 5 Mg Tablet) 5 mg PO Q6H PRN PRN Reason: Pain, Moderate(Pain Scale 4-6) Sodium Chloride (0.9 % Sodium Chloride Flush 3 Ml Syringe) 3 ml IVFLUSH [facility] Home Medications Medication Instructions Recorded Confirmed Last Taken Type citalopram 10 mg tablet 10 mg PO DAILY 12/04/22 12/04/22 12/03/22 History dextroamphetamine-amphetamine 10 1 tab PO 3XD PRN sleep disorder 12/04/22 12/04/22 Unknown History mg tablet dextroamphetamine-amphetamine 20 1 tab PO QAM 12/04/22 12/04/22 12/04/22 History mg tablet doxycycline hyclate 100 mg capsule 100 mg PO BID 12/04/22 12/04/22 12/03/22 History Physical Exam Vital Signs and Narrative: Vital Signs: Last Vital Signs Pulse 110 H 12/04/22 11:10 Resp 18 12/04/22 11:10 BP 139/70 12/04/22 11:10 Pulse Ox 97 12/04/22 11:10 O2 Del Method Room Air 12/04/22 11:10 BMI result Body Mass Index 25.1 Constitutional - Awake and Alert, No apparent distress Eyes - PERRLA, EOMI Cardiovascular - S1S2, RRR, No edema Respiratory - Normal lung expansion, Normal respiratory effort, No respiratory distress, CTA bilaterally Gastrointestinal - mild suprapubic ttp with bladder distension. +BS; No rebound or guarding Extremities - no calf tenderness bilaterally, no swelling MSK- midline low back pain level about L4-S1 Skin - Warm/Dry Neurological - Alert & oriented x3, 5/5 strength BUE, 2/5 strength BLE, downgoing Babinski, symmetric 1+ patellar reflexes Psychological - Appropriate affect Results Labs 12/04/22 12:55 12/04/22 12:55 Labs: Laboratory Results - last 24 hr 12/04/22 12/04/22 12:55 12:55 MCV 95.7 MCH 33.5 H MCHC 35.0 RDW 11.5 Plt Count 224 MPV 8.9 L Immature Gran % (Auto) 1.2 H Neut % (Auto) 66.2 Lymph % (Auto) 23.7 [place] % (Auto) 6.6 Eos % (Auto) 1.6 Baso % (Auto) 0.7 Lymph # (Auto) 1.8 [place] # (Auto) 0.5 Eos # (Auto) 0.1 Baso # (Auto) 0.1 Abs Immat Gran (auto) 0.09 H Absolute Neuts (auto) 4.9 Absolute Nucleated RBC 0.000 Nucleated RBC % (auto) 0.0 Anion Gap 15 Estim Creat Clear Calc 131.8 Estimated GFR > 60 Random Glucose 89 Calcium 9.5 Imaging Radiologist's Impressions: Impressions Lumbar Spine MRI 12/04/22 12:20 IMPRESSION: There is abnormal intramedullary signal intensity primarily involving the dorsal columns and subtle superficial enhancement along the dorsal surface of the distal cord. The etiology of these findings is uncertain. Infectious, inflammatory, or demyelinating conditions should be considered. Ischemia can also be considered but is felt to be less likely with this distribution of disease. A dedicated MRI of the brain, cervical spine, and thoracic spine without and with contrast can be obtained for further evaluation of the neural axis. A lumbar puncture can also be undertaken for further workup. There is disc degeneration and degenerative arthrosis of the articular facet joints at L4-L5 and L5-S1. No canal stenosis. No mass effect on the traversing or foraminal nerve roots. This critical result was discussed with Dr Wei at 1:41 PM on 12/04/2022 and it was ascertained that the content and urgency of the report was understood at the time of direct communication. Assessment and Plan (1) Demyelinating disease of the spinal cord: Status: Acute Plan 37-year-old male who is a current everyday smoker with depression and idiopathic hypersomnia admitted for further investigation of suspected demyelinating disease #Concern for demyelinating disease -pt with saddle anesthesia, bilateral lower extremity weakness, paresthesias, bowel incontinence, urinary incontinence -MRI lumbar spine negative for cauda equina but shows abnormal intramedullary signal intensity involving the dorsal columns in subtle superficial enhancement along the dorsal surface of the distal cord concerning for infectious, inflammatory demyelinating conditions -MRI with/without contrast brain, cervical spine, thoracic spine to evaluate further for demyelinating disease -lumbar puncture ordered -neurology consult -IV Solu-Medrol 1 g daily times 3 days -Bladder scan showed >631ml, but eventually voided with 108 ml PVR. Hold on fisher for now. Bladder scan qshift #Mood disorder/hypersomnia -continue home meds #Cigarette smoker -Nicotine patch for NRT -Smoking cessation counseling DVT prophaylxis- SCPs, consider lovenox post LP Full code Pt requires inpt stay at least 2 midnights for management of symptoms concerning for demyelinating disease requiring IV Solu-Medrol and expert consultation Time Spent With Patient Time: Total time managing care of this patient today ____ minutes. Quality Stroke Does the patient have a stroke diagnosis?: No VTE Prior VTE?: No VTE Risk Level:: Medical - moderate - high VTE Device Contraindication: Treatment Not Indicated VTE Drug Contraindication: N/A - Med Ordered
[2022-12-04] MEDS: Nicotine 21 MG PATCH.TD24 TRANSDERMA (16:31)
[2022-12-04 16:51] VITALS: BP 128/82; PULSE 78; RESP 16; TEMP 36.8; O2SAT 97
[2022-12-04 17:38] LABS: Appearance Urine Clear; Color Urine Yellow; Glucose Urine UA Negative (Negative); Leukocyte Esterase Urine Negative (Negative); Nitrite Urine Negative (Negative); PH 7.5 (5.0-9.0); Specific Gravity - Urine 1.015 (1.005-1.025); Urine Blood Negative (Negative); Urine Ketones Negative (Negative); Urine Protein Negative (Neg-Trace)
--- NOTE | 2022-12-04 18:50 | PC.NURSE ---
THIS RN GAVE RN TO RN REPORT TO DIANNE JONES. PT AWAITING TO GO TO mri FROM mri PT TO GO TO BED ASSIGNMENT. THIS RN CONFIRMED THIS PLAN WITH MED SURG FLOOR. AGREEABLE TO PLAN. PT SENT DOWN TO MRI
[2022-12-04 21:38] VITALS: BP 129/79; PULSE 91; RESP 18; TEMP 36.4
[2022-12-04] MEDS: 0.9 % Sodium Chloride Flush 3 ML SYRINGE IVFLUSH (21:54)
[2022-12-04 23:50] VITALS: BP 136/86; PULSE 86; RESP 16; TEMP 36.4; O2SAT 97
--- NOTE | 2022-12-05 01:28 | PC.NURSE ---
Patient unable to void, states feels no urge just some pressure in abd. Bladder scanned for over 350 ,st cath for 600 with good relief.
[2022-12-05 03:23] VITALS: BP 119/74; PULSE 80; RESP 16; TEMP 36.4; O2SAT 92
[2022-12-05 06:44] LABS: MANUAL DIFF FLAG NO
[2022-12-05 06:50] LABS: INTERNATIONAL NORM RATIO 1.1 (0.9-1.1); Prothrombin Time 12.8 SEC (11.1-13.3)
[2022-12-05 06:52] LABS: Basophils Percent Auto 0.2 % (0-2); Hematocrit 42.2 % (42.0-52.0); Hemoglobin 14.7 g/dl (14.0-18.0); Imm Gran Abs Auto 0.08 X10*3/uL (0.00-0.03); Imm Gran Pct Auto 0.9 % (0.0-0.4); Lymphocytes Absolute Auto 0.9 X10*3/uL (1.2-4.9); Lymphocytes Percent Auto 10.6 % (20-40); Mean Corpuscular HGB Conc 34.8 g/dl (31.0-36.0); Mean Corpuscular Hemoglobin 33.7 pg (27.0-33.0); Mean Corpuscular Volume 96.8 fL (80.0-98.0); Mean Platelet Volume 9.5 fL (9.4-12.4); Monocytes Absolute Auto 0.2 X10*3/uL (0.1-1.2); Monocytes Percent Auto 1.8 % (2-11); Neutrophils Absolute Auto 7.6 x10*3/uL (2.0-8.3); Neutrophils Percent Auto 86.5 % (45-73); Platelet Count 255 X10*3/uL (160-400); Red Blood Count 4.36 X10*6/uL (4.60-5.80); Red Cell Distribution Width 11.1 % (11.0-16.0); White Blood Count 8.8 X10*3/uL (4.8-10.8)
[2022-12-05 07:02] LABS: Anion Gap 15 (12-20); Blood Urea Nitrogen 17 mg/dL (9-16); Calcium 9.6 mg/dL (8.4-10.2); Carbon Dioxide 19 mmol/L (22-29); Chloride 107 mmol/L (96-108); Creatinine Clr Calc Pharmacy 136.9; Estimated Glomerular Filt Rate > 60; Glucose Random 147 mg/dL (60-115); Potassium 4.2 mmol/L (3.3-5.1); Sodium 137 mmol/L (135-145)
[2022-12-05] MEDS: 0.9 % Sodium Chloride Flush 3 ML SYRINGE IVFLUSH ×3 (07:15→19:26)
[2022-12-05 07:28] VITALS: BP 115/74; PULSE 88; RESP 16; TEMP 36.4; O2SAT 94
[2022-12-05 09:15] VITALS: BP 109/71; PULSE 89; RESP 18; O2SAT 94
--- NOTE | 2022-12-05 09:27 | HO.PM.IMPN ---
Subjective Subjective Date of Service: 12/05/22 Interval History: feel slightly better Physical Exam Vital Signs: Vital Signs: Last Vital Signs Temp 97.5 F 12/05/22 07:28 Pulse 89 12/05/22 09:15 Resp 18 12/05/22 09:15 BP 109/71 12/05/22 09:15 Pulse Ox 94 12/05/22 09:15 O2 Del Method Room Air 12/05/22 09:15 BMI result Body Mass Index 25.1 Const: Other: Constitutional - Awake and Alert, No apparent distress Eyes - PERRLA, EOMI Cardiovascular - S1S2, RRR, No edema Respiratory - Normal lung expansion, Normal respiratory effort, No respiratory distress, CTA bilaterally Gastrointestinal - mild suprapubic ttp with bladder distension. +BS; No rebound or guarding Extremities - no calf tenderness bilaterally, no swelling MSK- midline low back pain level about L4-S1 Skin - Warm/Dry Neurological - Alert & oriented x3, 5/5 strength BUE, 2/5 strength BLE, downgoing Babinski, symmetric 1+ patellar reflexes Psychological - Appropriate affect Objective Data Active Medications Acetaminophen (Acetaminophen 325 Mg Tablet) 650 mg PO Q6H PRN PRN Reason: Pain, Mild (Pain Scale 1-3) Docusate Sodium (Docusate Sodium 100 Mg Capsule) 100 mg PO DAILY PRN PRN Reason: Constipation Methylprednisolone Sodium Succinate 1,000 mg/ Sodium Chloride 66 mls @ 66 mls/hr IV Q24H [facility] Stop: 12/06/22 16:59 Morphine Sulfate (Morphine Sulfate 2 Mg/Ml Cartridge) 2 mg IVPUSH Q4H PRN; Protocol PRN Reason: Pain, Severe (Pain Scale 7-10) Ondansetron HCl (Ondansetron Hcl 4 Mg/2 Ml Vial) 4 mg IVPUSH Q8H PRN PRN Reason: Nausea and Vomiting Oxycodone HCl (Oxycodone Hcl Immed Release 5 Mg Tablet) 5 mg PO Q6H PRN PRN Reason: Pain, Moderate(Pain Scale 4-6) Sodium Chloride (0.9 % Sodium Chloride Flush 3 Ml Syringe) 3 ml IVFLUSH QSHIFT [facility] Last Admin: 12/05/22 07:15 Dose: 3 ml Documented By: LIT Labs 12/05/22 06:02 12/05/22 06:02 Labs: Laboratory Results - last 24 hr 08/02/23 08/02/23 08/02/23 12:55 12:55 12:55 MCV 95.7 MCH 33.5 H MCHC 35.0 RDW 11.5 Plt Count 224 MPV 8.9 L Immature Gran % (Auto) 1.2 H Neut % (Auto) 66.2 Lymph % (Auto) 23.7 [place] % (Auto) 6.6 Eos % (Auto) 1.6 Baso % (Auto) 0.7 Lymph # (Auto) 1.8 [place] # (Auto) 0.5 Eos # (Auto) 0.1 Baso # (Auto) 0.1 Abs Immat Gran (auto) 0.09 H Absolute Neuts (auto) 4.9 Absolute Nucleated RBC 0.000 Nucleated RBC % (auto) 0.0 PT Cancelled INR Cancelled APTT Cancelled Anion Gap 15 Estim Creat Clear Calc 131.8 Estimated GFR > 60 Random Glucose 89 Calcium 9.5 Urine Color Urine Appearance Urine pH Ur Specific [place] Urine Protein Urine Glucose (UA) Urine Ketones Urine Blood Urine Nitrite Ur Leukocyte Esterase 12/04/22 12/05/22 12/05/22 16:53 06:02 06:02 MCV 96.8 MCH 33.7 H MCHC 34.8 RDW 11.1 Plt Count 255 MPV 9.5 Immature Gran % (Auto) 0.9 H Neut % (Auto) 86.5 H Lymph % (Auto) 10.6 L [place] % (Auto) 1.8 L Eos % (Auto) 0.0 Baso % (Auto) 0.2 Lymph # (Auto) 0.9 L [place] # (Auto) 0.2 Eos # (Auto) 0.0 Baso # (Auto) 0.0 Abs Immat Gran (auto) 0.08 H Absolute Neuts (auto) 7.6 Absolute Nucleated RBC 0.000 Nucleated RBC % (auto) 0.0 PT INR APTT Anion Gap 15 Estim Creat Clear Calc 136.9 Estimated GFR > 60 Random Glucose 147 H Calcium 9.6 Urine Color Yellow Urine Appearance Clear Urine pH 7.5 Ur Specific [place] 1.015 Urine Protein Negative Urine Glucose (UA) Negative Urine Ketones Negative Urine Blood Negative Urine Nitrite Negative Ur Leukocyte Esterase Negative 12/05/22 06:24 MCV MCH MCHC RDW Plt Count MPV Immature Gran % (Auto) Neut % (Auto) Lymph % (Auto) [place] % (Auto) Eos % (Auto) Baso % (Auto) Lymph # (Auto) [place] # (Auto) Eos # (Auto) Baso # (Auto) Abs Immat Gran (auto) Absolute Neuts (auto) Absolute Nucleated RBC Nucleated RBC % (auto) PT 12.8 INR 1.1 APTT Anion Gap Estim Creat Clear Calc Estimated GFR Random Glucose Calcium Urine Color Urine Appearance Urine pH Ur Specific [place] Urine Protein Urine Glucose (UA) Urine Ketones Urine Blood Urine Nitrite Ur Leukocyte Esterase Assessment and Plan (1) Lower extremity weakness: Status: Acute (2) Demyelinating disease of the spinal cord: Status: Acute Plan 37-year-old male who is a current everyday smoker with depression and idiopathic hypersomnia admitted for weakness and saddle anesthesia and being investigated for demyelinating disease #Concern for demyelinating disease -pt with saddle anesthesia, bilateral lower extremity weakness, paresthesias, bowel incontinence, urinary incontinence -MRI lumbar spine negative for cauda equina but shows abnormal intramedullary signal intensity involving the dorsal columns in subtle superficial enhancement along the dorsal surface of the distal cord concerning for infectious, inflammatory demyelinating conditions -MRI with/without contrast brain, cervical spine, thoracic spine to evaluate further for demyelinating disease -lumbar puncture ordered -neurology consult -IV Solu-Medrol 1 g daily times 3 days -Bladder scan showed >631ml, but eventually voided with 108 ml PVR. Hold on fisher for now. Bladder scan qshift #Mood disorder/hypersomnia -continue home meds #Cigarette smoker -Nicotine patch for NRT -Smoking cessation counseling DVT prophaylxis- SCPs, consider lovenox post LP Full code Pt requires inpt stay for management of symptoms concerning for demyelinating disease requiring IV Solu-Medrol and expert consultation Time Spent With Patient Time: Total time managing care of this patient today ____ minutes. Quality Stroke Does the patient have a stroke diagnosis?: No VTE Prior VTE?: No VTE Risk Level:: Medical - moderate - high VTE Device Contraindication: Treatment Not Indicated VTE Drug Contraindication: N/A - Med Ordered
--- NOTE | 2022-12-05 09:52 | MHC.CM.PN ---
PT REPORTS HE LIVES AT HOME WITH HIS AND TWO KIDS HE IS EMPLOYED AT [employer], INDEPENDENT WITH CARE AND DRIVES PT HAS NO DME AND NO SERVICES PT COMPLETED A HCP TODAY NAMING HIS AND SISTER HIS AGENTS HE REPORTS HE DOES NOT HAVE A PCP, CM WILL ATTEMPT TO SCHEDULE HIM A NEW PT APPT PTS DCP IS TBD PENDING FURTHER ASSESSMENTS HOME VS REHAB
[2022-12-05 13:13] LABS: CSF Appearance Clear, Colorless
[2022-12-05 13:25] LABS: CSF Tube # 1
[2022-12-05 13:47] LABS: Total Protein CSF 43.3 mg/dL (15-45)
[2022-12-05 14:08] LABS: Appearance CSF HAZY; CSF Tube # 4; Color CSF COLORLESS
[2022-12-05 14:09] LABS: CSF Monos 7 %; Lymphocytes CSF 93 %; Red Blood Cell CSF 2 MM*3; White Blood Cell CSF 46 MM*3
[2022-12-05] MEDS: methylPREDNISolone Sod Succ 1,000 MG in 0.9 % Sodium Chloride 50 ML 66 MG IV (15:14)
[2022-12-05 15:24] VITALS: BP 95/52; PULSE 85; RESP 20; TEMP 36.6; O2SAT 94
[2022-12-05] MEDS: Nicotine 14 MG PATCH.TD24 TRANSDERMA (21:19)
[2022-12-05 23:25] VITALS: BP 115/64; PULSE 96; RESP 16; TEMP 36.6; O2SAT 94
--- NOTE | 2022-12-06 00:12 | MHC.PIE ---
p; bladder scanned at 2130 for over 400. pt wished for more time to urinate. at 2300. bladder scanned for over 500. pt reports unable to void after numerous attempts i; dr covarrubias notified - new order straight cath now e; will cont to monitor
[2022-12-06 03:32] VITALS: BP 126/79; PULSE 76; RESP 14; TEMP 36.2; O2SAT 92
[2022-12-06 07:15] VITALS: BP 107/60; PULSE 100; RESP 16; TEMP 36.6; O2SAT 97
[2022-12-06] MEDS: Nicotine 14 MG PATCH.TD24 TRANSDERMA (08:19)
[2022-12-06] MEDS: 0.9 % Sodium Chloride Flush 3 ML SYRINGE IVFLUSH ×3 (08:22→20:12)
--- NOTE | 2022-12-06 09:55 | P.PNIM_ITS ---
Subjective Subjective Date of Service: 12/06/22 Interval History: continue to have slight improvment, LP yesterday, elevated WBC but negative gram stain, Physical Exam Vital Signs: Vital Signs: Last Vital Signs Temp 97.8 F 12/06/22 07:15 Pulse 100 12/06/22 07:15 Resp 16 12/06/22 07:15 BP 107/60 12/06/22 07:15 Pulse Ox 97 12/06/22 07:15 O2 Del Method Room Air 12/06/22 07:15 BMI result Body Mass Index 25.1 Const: Other: Constitutional - Awake and Alert, No apparent distress Eyes - PERRLA, EOMI Cardiovascular - S1S2, RRR, No edema Respiratory - Normal lung expansion, Normal respiratory effort, No respiratory distress, CTA bilaterally Gastrointestinal - mild suprapubic ttp with bladder distension. +BS; No rebound or guarding Extremities - no calf tenderness bilaterally, no swelling MSK- midline low back pain level about L4-S1 Skin - Warm/Dry Neurological - Alert & oriented x3, 5/5 strength BUE, 2/5 strength BLE, d owngoing Babinski, symmetric 1+ patellar reflexes Psychological - Appropriate affect Objective Data Active Medications Acetaminophen (Acetaminophen 325 Mg Tablet) 650 mg PO Q6H PRN PRN Reason: Pain, Mild (Pain Scale 1-3) Docusate Sodium (Docusate Sodium 100 Mg Capsule) 100 mg PO DAILY PRN PRN Reason: Constipation Methylprednisolone Sodium Succinate 1,000 mg/ Sodium Chloride 66 mls @ 66 mls/hr IV Q24H [facility] Stop: 12/06/22 16:59 Last Infusion: 12/05/22 16:15 Dose: 0 mls/hr Documented By: LIT Morphine Sulfate (Morphine Sulfate 2 Mg/Ml Cartridge) 2 mg IVPUSH Q4H PRN; Protocol PRN Reason: Pain, Severe (Pain Scale 7-10) Nicotine (Nicotine 14 Mg Patch.Td24) 14 mg TRANSDERMA DAILY [facility] Last Admin: 12/06/22 08:19 Dose: 14 mg Documented By: RADHA Ondansetron HCl (Ondansetron Hcl 4 Mg/2 Ml Vial) 4 mg IVPUSH Q8H PRN PRN Reason: Nausea and Vomiting Oxycodone HCl (Oxycodone Hcl Immed Release 5 Mg Tablet) 5 mg PO Q6H PRN PRN Reason: Pain, Moderate(Pain Scale 4-6) Sodium Chloride (0.9 % Sodium Chloride Flush 3 Ml Syringe) 3 ml IVFLUSH QSHIFT [facility] Last Admin: 12/06/22 08:22 Dose: 3 ml Documented By: RADHA Labs 12/05/22 06:02 12/05/22 06:02 Labs: Laboratory Results - last 24 hr 12/05/22 12/05/22 11:54 11:54 CSF Tube Number 1 4 CSF Volume 2.0 CSF Appearance HAZY CSF Color COLORLESS CSF WBC 46 H* CSF RBC 2 CSF Lymphocytes 93 CSF Monocytes % 7 CSF Appearance (b) Clear, Colorless CSF Total Protein 43.3 Microbiology Microbiology Results: Microbiology 12/05/22 11:54 Gram Stain - Final Cerebrospinal Fluid CSF Examination - Final Fluid Description - Final Assessment and Plan (1) Lower extremity weakness: Status: Acute (2) Demyelinating disease of the spinal cord: Status: Acute Plan 37-year-old male who is a current everyday smoker with depression and idiopathic hypersomnia admitted for weakness and saddle anesthesia and being investigated for demyelinating disease #Concern for demyelinating disease -pt with saddle anesthesia, bilateral lower extremity weakness, paresthesias, bowel incontinence, urinary incontinence -MRI lumbar spine negative for cauda equina but shows abnormal intramedullary signal intensity involving the dorsal columns in subtle superficial enhancement along the dorsal surface of the distal cord concerning for infectious, inflammatory demyelinating conditions -MRI with/without contrast brain, cervical spine, thoracic spine to evaluate further for demyelinating disease -lumbar puncture ordered -neurology consult -IV Solu-Medrol 1 g daily times 3 days -Bladder scan showed >631ml, but eventually voided with 108 ml PVR. Hold on fisher for now. Bladder scan qshift Neuro consult pending, CSF WBC high, gram stain negative, get CSF encephalitis p corrine #Mood disorder/hypersomnia -continue home meds #Cigarette smoker -Nicotine patch for NRT -Smoking cessation counseling DVT prophaylxis- SCPs, consider lovenox post LP Full code Pt requires inpt stay for management of symptoms concerning for demyelinating disease requiring IV Solu-Medrol and expert consultation Time Spent With Patient Time: Total time managing care of this patient today ____ minutes. Quality Stroke Does the patient have a stroke diagnosis?: No VTE Prior VTE?: No VTE Risk Level:: Medical - moderate - high VTE Device Contraindication: Treatment Not Indicated VTE Drug Contraindication: N/A - Med Ordered
[2022-12-06] MEDS: Morphine Sulfate 2 MG/ML CARTRIDGE IVPUSH ×2 (12:25→18:55)
--- NOTE | 2022-12-06 13:52 | MHC.CM.PN ---
T/W MET WITH PATIENT TO DISCUSS DC PLANS. PATIENT WANTS TO MEET WITH NEUROLOGY PRIOR TO DC. CONSULT PLACED 12/04/22.
[2022-12-06] MEDS: oxyCODONE HCl Immed Release 5 MG TABLET PO (15:15)
[2022-12-06] MEDS: Acetaminophen 325 MG TABLET 650 MG PO (15:15)
[2022-12-06] MEDS: methylPREDNISolone Sod Succ 1,000 MG in 0.9 % Sodium Chloride 50 ML 66 MG IV (15:15)
[2022-12-06 16:00] VITALS: BP 103/62; PULSE 78; RESP 20; TEMP 36.3; O2SAT 98
--- NOTE | 2022-12-06 16:24 | P.CNNE_ITS ---
History of Present Illness Data of Consult Service Date: 12/06/22 Primary Care Provider: None Physician HPI Reason for consult: Myelopathy 37 years old man who denied any previous history of drug use diabetes or hyp ertension was recently complaining of back pain and was in neuro surgery office for consultation when he complain of bilateral saddle anesthesia type of symptoms and loss of bowel bladder control and was sent to emergency room. He said that he was able to walk but it was little bit difficult. There was no eye symptom ear symptoms speech or language symptom are face weakness or arm weakness. There was no rash or trauma. Review of Systems Review of Systems: No recent cold or flu-like illness PMFSH Past Medical History Medical History Current every day smoker Depression Idiopathic hypersomnia Social History Social History (Updated 12/04/22 @ 16:35 by ELIDA Cunha) Household Members: Family Housing: House Do you presently have visiting nurse or other home services: No Alcohol intake: unknown Patient Tobacco Use Status: Current everyday Tobacco user Tobacco use type: Cigarette Cigarette Packs Per Day: 11 Smoked in Last 30 Days: Yes Patient Interested in Nicotine Replacement: Yes Patient Given Instructions on How to Stop Smoking: No Use of substances other than those prescribed or required for medical reasons: No Substance Use Type Other:: METHADONE Currently Displaying Signs/Symptoms of Drug Intoxication Withdrawal: No Have you been hit, kicked, punched, or otherwise hurt by someone within the past year? If so, by whom?: No Do you feel safe in your current relationship?: Yes Is there a partner from a previous relationship who is making you feel unsafe now?: No Are you made to feel afraid or neglected: No Advance Directives: No Do you have thoughts of harming others: None Do you have a plan to hurt others: No Plan Recently lost weight without trying: No Eating poorly because of decreased appetite: No Nutrition Risks: No Nutritional Risk Poor oral hygiene: No service: No Meds Allergies Allergy/AdvReac Type Severity Reaction Status Date / Time No Known Allergies Allergy Verified 12/04/22 11:09 Active Medications: Current Medications Acetaminophen (Acetaminophen 325 Mg Tablet) 650 mg PO Q6H PRN PRN Reason: Pain, Mild (Pain Scale 1-3) Last Admin: 12/06/22 15:15 Dose: 650 mg Docusate Sodium (Docusate Sodium 100 Mg Capsule) 100 mg PO DAILY PRN PRN Reason: Constipation Methylprednisolone Sodium Succinate 1,000 mg/ Sodium Chloride 66 mls @ 66 mls/hr IV Q24H [facility] Stop: 12/06/22 16:59 Last Infusion: 12/06/22 16:24 Dose: Infused Doxycycline Hyclate 100 mg/ (Sodium Chloride) 250 mls @ 166.67 mls/hr IV Q12H [facility] Morphine Sulfate (Morphine Sulfate 2 Mg/Ml Cartridge) 2 mg IVPUSH Q4H PRN; Protocol PRN Reason: Pain, Severe (Pain Scale 7-10) Last Admin: 12/06/22 12:25 Dose: 2 mg Nicotine (Nicotine 14 Mg Patch.Td24) 14 mg TRANSDERMA DAILY [facility] Last Admin: 12/06/22 08:19 Dose: 14 mg Ondansetron HCl (Ondansetron Hcl 4 Mg/2 Ml Vial) 4 mg IVPUSH Q8H PRN PRN Reason: Nausea and Vomiting Oxycodone HCl (Oxycodone Hcl Immed Release 5 Mg Tablet) 5 mg PO Q6H PRN PRN Reason: Pain, Moderate(Pain Scale 4-6) Last Admin: 12/06/22 15:15 Dose: 5 mg Sodium Chloride (0.9 % Sodium Chloride Flush 3 Ml Syringe) 3 ml IVFLUSH [facility] Last Admin: 12/06/22 15:15 Dose: 3 ml Home Medications Medication Instructions Recorded Confirmed Last Taken Type citalopram 10 mg tablet 10 mg PO DAILY 12/04/22 12/04/22 12/03/22 History dextroamphetamine-amphetamine 10 1 tab PO 3XD PRN sleep disorder 12/04/22 12/04/22 Unknown History mg tablet dextroamphetamine-amphetamine 20 1 tab PO QAM 12/04/22 12/04/22 12/04/22 History mg tablet doxycycline hyclate 100 mg capsule 100 mg PO BID 12/04/22 12/04/22 12/03/22 History Physical Exam Vital Signs: Vital Signs: Last Vital Signs Temp 97.8 F 12/06/22 07:15 Pulse 100 12/06/22 07:15 Resp 16 12/06/22 07:15 BP 107/60 12/06/22 07:15 Pulse Ox 97 12/06/22 07:15 O2 Del Method Room Air 12/06/22 07:15 BMI result Body Mass Index 25.1 Neuro: Other: He is alert and awake with normal spontaneity of speech fluency comprehension and affect. Face is symmetrical. Visual stan[place] are full. Extraocular muscles are intact. There is no pronator drift. [id number] testing is normal. He has difficulty with sling toes and left foot. Deep tendon reflexes are 1+ with equivocal plantars. This seems to be mild spasticity in legs. Speech is normal. Results Labs 12/05/22 06:02 12/05/22 06:02 Labs: Brain MRI did not reveal any significant lesion. Spine MRI was reviewed including cervical thoracic and lumbosacral spine. Faint signal abnormality was reported by radiologist though on my computer it was difficult to see. Microbiology Microbiology Results: Microbiology 12/05/22 11:54 Cerebrospinal Fluid Gram Stain - Final 12/05/22 11:54 Cerebrospinal Fluid CSF Examination - Final 12/05/22 11:54 Cerebrospinal Fluid Fluid Description - Final 12/05/22 11:54 Cerebrospinal Fluid CSF Culture - Preliminary No growth after 1 day Assessment and Plan (1) Demyelinating disease of the spinal cord: Status: Acute 37 years old man who probably has 1st episode of demyelinating disease affecting spinal cord with no brain lesion. This type of condition and acute situation is treated with Solu-Medrol a g a day for 3-5 days followed by prednisone taper for few days. PT OT consultation and appropriate nursing care is recommended. His spinal fluid testing, at least some of that, is pending. My recommendation is to finish steroid treatment and proceed with rehab. He can CS as an outpatient for further neurological care. Time Spent With Patient Time: Total time managing care of this patient today ____ minutes. Procedures Date of Service Date of Service: 12/06/22
[2022-12-06] MEDS: Doxycycline Hyclate 100 MG in 0.9 % Sodium Chloride 250 ML 166.67 MG IV (17:16)
[2022-12-06] MEDS: Docusate Sodium 100 MG CAPSULE PO (20:12)
[2022-12-06 23:39] VITALS: BP 112/60; PULSE 62; RESP 18; TEMP 36.3; O2SAT 93
[2022-12-07] MEDS: Doxycycline Hyclate 100 MG in 0.9 % Sodium Chloride 250 ML 166.67 MG IV ×2 (04:06→16:13)
[2022-12-07 08:00] VITALS: BP 116/73; PULSE 73; RESP 18; TEMP 36.7; O2SAT 95
[2022-12-07] MEDS: Morphine Sulfate 2 MG/ML CARTRIDGE IVPUSH (08:19)
[2022-12-07] MEDS: Docusate Sodium 100 MG CAPSULE PO (08:22)
[2022-12-07] MEDS: Nicotine 14 MG PATCH.TD24 TRANSDERMA (08:22)
[2022-12-07] MEDS: 0.9 % Sodium Chloride Flush 3 ML SYRINGE IVFLUSH (08:24)
--- NOTE | 2022-12-07 09:20 | P.DS_ITS ---
DS: Providers Provider Date of Service: 12/07/22 Date of admission: 12/04/22 15:42 Primary care physician: None Physician Consults: 12/04/22 15:42 Consult to Neurology Routine Consulting Provider: [facility] Reason for consultation: demyelinating disease DS: Diagnosis Discharge Diagnosis (1) Demyelinating disease of the spinal cord: Status: Acute DS: Summary Hospital Course Hospital Course: Chief Complaint: weakness, paresthesias 37-year-old male who is a current everyday smoker with depression and idiopathic hypersomnia presented to the ED earlier today from Neurosurgery office for evaluation of low back pain, saddle anesthesia, bowel incontinence, urinary retention, and progressive lower extremity weakness.? He states symptoms started about 3 days ago.? Denies any injury.? 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 He was referred to Neurosurgery office who recommended he come to the ED for emergent MRI due to concerns for cauda equina.? On arrival, patient is slightly tachycardic to 110 and very anxious, vitals otherwise stable.? There is no leukocytosis or anemia.? Renal function and electrolyte levels normal.? MRI of the lumbar spine shows abnormal intramedullary signal intensity primarily involving the dorsal columns in subtle superficial enhancement along the dorsal surface of the distal cord with differential to include infectious, inflammatory, or demyelinating conditions.? Ischemia could also be considered but is less likely.? Dedicated MRI cervical spine, thoracic spine, and brain recommended as well as lumbar puncture. Case discussed with Neurosurgery who does not feel this is surgical in nature.? Neurology recommending admission for IV Solu-Medrol. In ED, given 1g IV solumedrol. No recent illness. Unsure if uncle with MS, otherwise denies FHx of demyelinating disease. Hospital course: Patient presented with saddle pattern paresthesia and weakness with MRI of the head, cervical spine and lumbar spine and there was finding of There appears to be faintly increased T2 signal within the dorsal aspect of the spinal cord from the level of T11 through the conus medullaris. This is a nonspecific finding but may be seen in the setting of a infectious, inflammatory, or demyelinating process. No demonstrated additional spinal cord signal abnormalities. No abnormal enhancement. There is concern of demylination disease, He had LP which showed WBC of 45 otherwise unremarkable, with addtional labs sent for demylinating disease work up. He was seen by Dr. Loyd and recommended for IV Solumedrol 1gm daily x 3 days to follow by Prednisone antwan. Lyme serolgy is pending but giving Doxycyline in the rare posibility of lyme disease. Time Spent with Patient Time attestation: Total time managing care of this patient today ____ minutes. Discharge coordination time: Greater than 30 minutes Quality: Safe Use of Opioids Does Pt have an Active Cancer Diagnosis on the Problem List?: No Quality: Stroke Does the patient have a stroke diagnosis?: No Physical Exam Vital Signs: Vital Signs: Last Vital Signs Temp 98.0 F 12/07/22 08:00 Pulse 73 12/07/22 08:00 Resp 18 12/07/22 08:00 BP 116/73 12/07/22 08:00 Pulse Ox 95 12/07/22 08:00 O2 Del Method Room Air 12/07/22 08:00 BMI result Body Mass Index 25.1 DS: Data Data Completed and Pending Labs on day of discharge: Preliminary micro results at discharge 12/05/22 11:54 CSF Culture - Preliminary Cerebrospinal Fluid No growth after 1 day Discharge Plan Discharge Anticipated Discharge Date/Time: 12/07/22 09:02 Patient Disposition: Home, Self-Care Discharge Diagnosis: Demyelination disease of the spinal cord, urinary retention. Referrals: Physician,None [Primary Care Provider] - 1 Week Discharge Medications: New doxycycline hyclate 100 mg tablet 100 mg PO BID 7 Days Qty: 14 0RF Continued doxycycline hyclate 100 mg capsule 100 mg PO BID citalopram 10 mg Tablet 10 mg PO DAILY dextroamphetamine-amphetamine 10 mg tablet 1 tab PO 3XD PRN (Reason: sleep disorder) dextroamphetamine-amphetamine 20 mg tablet 1 tab PO QAM Diet: Advance to usual diet Activity on Discharge: As tolerated Stand Alone Forms: Patient Portal Discharge page Care Plan Goals: Recovery from demyelination disease. Health Concerns: Demyelinating disease of the spinal cord Plan of Treatment: take prednisone as directed, follow-up with Dr. Loyd take doxycycline as recommended until line result is available. Assessment: as above
[2022-12-07] MEDS: oxyCODONE HCl Immed Release 5 MG TABLET PO (09:54)
--- NOTE | 2022-12-07 11:13 | MHC.CM.PN ---
PT TO DC HOME TODAY WITH NO SERVICES TO TRANSPORT
[2022-12-07] MEDS: methylPREDNISolone Sod Succ 1,000 MG in 0.9 % Sodium Chloride 50 ML 66 MG IV (12:29)
[2022-12-07 15:45] VITALS: BP 109/64; PULSE 75; RESP 16; TEMP 36.1; O2SAT 94
[2022-12-10 16:53] LABS: Lyme Abs Screen <0.90 index
[2022-12-11 19:33] LABS: Myelin Basic Protein <2.0 mcg/L (<=4.0)
[2022-12-17 07:23] LABS: Prealbumin, CSF 3.6; Total Protein, CSF 41
[2022-12-17 07:24] LABS: Albumin, CSF 58.7; Alpha-1-Globulin,CSF 6.2; Alpha-2-Globulin,CSF 9.8; Beta Globulin, CSF 13.4; Gamma Globulin 8.3
== END 2022-12-07 18:46 | disposition home or self-care (01) | DRG 43 ==
LOC: HO.ED 14:29 → HO.EDOVER 15:50 → HO.S3 16:58
PROVIDERS: Radiology Vascular & Interventional Radiology; Student in an Organized Health Care Education/Training Program; Admitting Provider Physician Assistant; Emergency Provider Emergency Medicine; Visit Provider Internal Medicine
PROC: 009U3ZZ Drainage of Spinal Canal, Percutaneous Approach (ICD-10-PCS; CPT 62270; principal; 2022-12-05 11:30)
DX: G37.8 Other specified demyelinating diseases of central nervous system (principal); F39 Unspecified mood [affective] disorder; F17.210 Nicotine dependence, cigarettes, uncomplicated; R32 Unspecified urinary incontinence; Z71.6 Tobacco abuse counseling; Z79.899 Other long term (current) drug therapy
CPT/HCPCS: 36415; 62328; 70553; 72156; 72157; 72158; 80048; 81003; 83873; 83916; 84157; 84166; 85025; 85610; 85730; 86617; 86618; 87015; 87070; 87205; 89051; 99285; A9585; J2270; J2930

== ENCOUNTER 2022-12-04 15:42 | Outpatient (BNV) | payer OTHER, SELFPAY | END 2022-12-05 11:40 | PROVIDERS: Admitting Provider Physician Assistant; Emergency Provider Emergency Medicine; Visit Provider Radiology Vascular & Interventional Radiology | DX: G37.9 Demyelinating disease of central nervous system, unspecified (principal) | CPT/HCPCS: 62328 ==

== ENCOUNTER → 2022-12-04 15:42 | Outpatient (BNV) | payer OTHER, SELFPAY | PROVIDERS: Admitting Provider Physician Assistant; Emergency Provider Emergency Medicine; Visit Provider Internal Medicine | DX: G37.9 Demyelinating disease of central nervous system, unspecified (principal) | CPT/HCPCS: 99223; 99232; 99239 ==

== ENCOUNTER 2022-12-17 12:45 | Outpatient (REF) | payer OTHER, SELFPAY ==
[2022-12-17 15:25] LABS: Erythrocyte Sedimentation Rate 2 MM/HR (0-15)
[2022-12-17 15:58] LABS: Folate 16.2 ng/mL (> or = 4.0); Vitamin B12 550 pg/mL (200-900)
[2022-12-18 03:41] LABS: Syphilis Screen Reactive (Nonreactive)
[2022-12-18 03:47] LABS: HIV AB/AG Nonreactive (Nonreactive); HIV Num 1 0.06 S/CO (0.00-0.99)
[2022-12-20 13:29] LABS: Anti Nuclear Antibody Screen NEGATIVE (NEGATIVE)
[2022-12-24 11:04] LABS: RPR Quantitative Non-Reactive (Nonreactive); T.Pallidum Particle Agg Test Reactive (Nonreactive)
== END 2022-12-17 12:46 | disposition home or self-care (01) ==
LOC: HO.WFDLDS 12:45
PROVIDERS: Visit Provider Psychiatry & Neurology Neurology
DX: Z11.4 Encounter for screening for human immunodeficiency virus [HIV] (principal); G04.91 Myelitis, unspecified
CPT/HCPCS: 36415; 82607; 82746; 85652; 86038; 86592; 86780; 87389

== ENCOUNTER 2023-01-03 15:09 | Outpatient (AMB) | payer OTHER, SELFPAY ==
--- NOTE | 2023-01-03 15:09 | A.OFFVIS_ITS ---
Intake Vital Signs 01/03/23 15:15 Height 5 ft 10 in Weight 184 lb BMI 26.4 BP 140/90 H Pulse 125 H Pulse Source Pulse Oximeter Pulse Oximetry (%) 97 Intake Visit Reasons: Ref.,Syphilis Allergies No Known Allergies Allergy (Verified 01/03/23 15:16) HPI Ref.,Syphilis HPI Details He presents as Neurology evaluation for positive RPR. He has demyelinating spinal cord lesion and has been seen by Neurology. He had no preceding viral or other illness. He has no travel and no pets. He is on Descovy Prep for HIV prophylaxis and sees [facility] three months. He had syphilis several months ago he says and was treated with PCN. He had some low grade fevers and rash at that time. He has positive syphilis EIA screen and negative RPR titers with positive TPA treponemal antibody. He is HIV negative and has no Hepatitis C/GC or chlamydia. [facility] Medical History Current every day smoker Depression Idiopathic hypersomnia Social History Household Members: Family Housing: House Do you presently have visiting nurse or other home services: No Alcohol intake: unknown Patient Tobacco Use Status: Current everyday Tobacco user Tobacco use type: Cigarette Cigarette Packs Per Day: 11 service: No Review of Systems Const All systems reviewed & are unremarkable except as noted in HPI and below Physical Exam Vital Signs: Last Vital Signs Pulse 125 H 01/03/23 15:15 BP 140/90 H 01/03/23 15:15 Pulse Ox 97 01/03/23 15:15 BMI result Body Mass Index 26.4 Const General: cooperative HEENT Head: Yes normal to inspection Face and sinus: Yes normal facial exam Mouth: Normal oral and palatal mucosa present Teeth and gingiva: dentition normal Eyes General: appearance normal, both eyes and all related structures Pupils: Equal, round and reactive pupils present Resp Effort & Inspection: normal respiratory effort Cardio Rate: regular rate Rhythm: regular rhythm GI Palpation (GI): Soft to palpation and nontender General: Yes no CVA tenderness Back/Spine/Pelvis Back: no CVA tenderness Skin General skin exam: no rashes or lesions noted Neuro General: moves all extremities Cranial nerves: Yes Equal, round and reactive pupils present Extrem General: Yes normal to inspection Psych Appearance: grossly normal Assessment & Plan Assessment & Plan (1) Lower extremity weakness: Comment: He was hospitalized last month and had urinary incontinence due to spinal cord concerns. He is feeling better. Syphilis is resolved with no symptoms (including hearing and vision) and no titer elevation. He gets checked regularly. Code(s): R29.898 - Other symptoms and signs involving the musculoskeletal system Plan: No further infectious workup needed at this time. Routine RPR in three months (2) Demyelinating disease of the spinal cord: Code(s): G37.9 - Demyelinating disease of central nervous system, unspecified Coding Level of Care Code New Pt Level 3 (85276) Diagnoses Lower extremity weakness R29.898 Demyelinating disease of the spinal cord G37.9
[2023-01-03 15:15] VITALS: BP 140/90; PULSE 125; O2SAT 97; BMI 26.4
== END 2023-01-03 15:51 | disposition home or self-care (01) ==
LOC: HO.HID 15:09
PROVIDERS: Visit Provider Internal Medicine
DX: R29.898 Other symptoms and signs involving the musculoskeletal system (principal); G37.9 Demyelinating disease of central nervous system, unspecified
CPT/HCPCS: 99203

== ENCOUNTER → 2023-01-03 15:09 | Outpatient (BNVA) | payer OTHER, SELFPAY | PROVIDERS: Visit Provider Internal Medicine ==